=== PATIENT | female | born 1930 | race Caucasian/White ===

== ENCOUNTER 2016-08-01 10:47 | Observation (INO) ==
--- NOTE | 2016-08-01 11:01 | Emergency Department Note ---
Disposition Clinical Impression: Dizziness, ST segment changes on electrocardiogram Disposition: Admitted As Inpatient Condition: Good Dizziness HPI - General Chief Complaint: ED Dizziness Stated Complaint: dizzy Time Seen by Provider: 08/01/16 10:50 Source: patient Mode of arrival: ambulatory Limitations: no limitations Nursing Notes Reviewed: Yes Vital Signs Reviewed: Yes - History of Present Illness HPI Narrative: 85-year-old female presents to the ER with a chief complaint of dizziness. Past medical history of arthritis, hyperlipidemia and tachycardia of unknown origin. Patient reports that this morning she woke up and was feeling dizzy whenever she sat up and stood up. She states that she has had dizziness for the last couple of months but today seemed to be worse. She reports it has been intermittent since it started. She describes the room as spinning around her. She denies a previous history of vertigo or any recent head trauma. She reports that she has headaches but she does not take daily medications for them and this does not seem to be like her typical symptoms and she is currently pain -free. She denies any headaches, visual changes, neck pain, chest pain, shortness of breath, nausea or vomiting. She does report some recent ear pressure and a history of sinus infections. No history of TIA or CVA. She does not take any anticoagulation or antiplatelet. No cardiac history with the exception of her tachycardia for which she takes half a beta sandra daily. No other complaints. Pt Subjective Complaint: dizziness Onset (ago): hour(s) Timing: awoke with symptoms Description: "room spinning" History of similar episodes: No History of trauma: No Severity: moderate Improves with: nothing Worsens with: movement Associated symptoms: Denies: chest pain, diaphoresis, fever, shortness of breath , syncope, weakness, vision changes, nausea, vomiting - Related Data Home Medications Medication Instructions Recorded Confirmed Atenolol [Tenormin] 12.5 mg PO DAILY 08/01/16 08/01/16 Atorvastatin [Lipitor] 10 mg PO HS 08/01/16 08/01/16 Naproxen [Naprosyn] 500 mg PO BID PRN 08/01/16 08/01/16 Vit C/E/Zn/Coppr/Lutein/Zeaxan 1 cap PO DAILY 08/01/16 08/01/16 [Preservision Areds 2 Softgel] hydrOXYzine HCl [Hydroxyzine HCl] 25 - 50 mg PO HS PRN 08/01/16 08/01/16 Allergies Allergy/AdvReac Type Severity Reaction Status Date / Time No Known Allergies Allergy Verified 09/14/15 12:07 All systems ED: reviewed and negative except as stated. Constitutional: Denies: fever ENT ED: Reports: ear pain. Denies: congestion Cardiovascular: Denies: chest pain Respiratory: Denies: cough, dyspnea Gastrointestinal: Denies: abdominal pain, nausea, vomiting Neurological: Reports: vertigo. Denies: headache, weakness, numbness, paresthesias Past Medical History - Past Medical History Attestation: Yes The following information was validated with the patient. Source: patient Medical history: Reports: arthritis, hyperlipidemia Surgical history: Reports: non-contributory Psychiatric history: Reports: no psych history - Social History Smoking Status: Never smoker Smokeless Tobacco Status: No Alcohol use: Reports: none Drug use: Reports: none Physical Exam - General Limitations: no limitations General appearance: alert, in no apparent distress - Head Head exam: atraumatic, normocephalic, normal inspection - Eye Eye exam: Present: normal appearance, PERRL, EOMI - ENT ENT exam: normal exam - Neck Neck exam: Present: normal inspection, full ROM. Absent: tenderness, meningismus - Chest Chest inspection: Present: normal inspection, symmetric chest wall rise - Respiratory Respiratory exam: Present: normal lung sounds bilaterally - Cardiovascular Cardiovascular exam: Present: regular rate, normal rhythm, normal heart sounds - Abdominal Exam Abdominal exam: Present: soft, Non-Tender. Absent: tenderness - Extremities Exam Extremities exam: Present: normal inspection, full ROM - Expanded Upper Extremity Exam Shoulder exam: Present: normal inspection, full ROM Arm exam: Present: normal inspection, full ROM Elbow exam: Present: normal inspection, full ROM Forearm/Wrist exam: Present: normal inspection, full ROM Hand exam: Present: normal inspection, full ROM Vascular exam: Normal: capillary refill, radial pulse - Expanded Lower Extremity Exam Hip/Pelvis exam: Present: normal inspection, full ROM Upper leg exam: Present: normal inspection, full ROM Knee exam: Present: normal inspection, full ROM Lower leg exam: Present: normal inspection, full ROM Ankle exam: Present: normal inspection, full ROM Foot/toe exam: Present: normal inspection, full ROM Neurovascular/Tendon exam: Absent: motor deficit, sensory deficit - Back Exam Back exam: Present: normal inspection - Neurological Exam Neurological exam: Present: alert, oriented X3, CN II-XII intact. Absent: motor sensory deficit - Expanded Neurological Exam Patient oriented to: Present: person, place, time Speech: Present: fluid speech Cranial nerves: EOM function (II, III, IV, ): Normal, facial sensation (V): Normal, spinal accessory function (XI): Normal, tongue deviation (XII): Normal Cerebellar function: finger to nose: Normal, heel to persaud: Normal Motor strength - LUE: 5/5 Motor strength - RUE: 5/5 Motor strength - LLE: 5/5 Motor strength - RLE: 5/5 Sensory exam upper extremity: light touch: Normal Sensory exam lower extremity: light touch: Normal Coma Scale Eye Opening: Spontaneous Coma Scale Motor Response: Obeys Commands Coma Scale Verbal Response: Oriented Coma Scale Total: 15 - Psychiatric Psychiatric exam: Present: normal affect, normal mood - Skin Skin exam: Present: warm, dry, intact, normal color Course Course Narrative: Patient seen and examined. Vital signs reviewed. She is a nonfocal neurologic exam but does report that it does seem a little worse whenever I have her move her head back and forth. We will obtain a CT scan of her head as well as an EKG and labs. Disposition pending. - Reevaluation(s) Reevaluation #1: Discussed results of imaging and lab work with the patient. Her EKG does demonstrate new ST changes that were not on her old EKG. She is asymptomatic at this time in terms of chest pain or shortness of breath. She is agreeable with staying in the hospital due to these new findings. Patient will be admitted. Vital Signs Temperature 97.9 F 08/01/16 10:52 Pulse Rate 77 08/01/16 10:52 Respiratory Rate 16 08/01/16 10:52 Blood Pressure 169/89 08/01/16 10:52 O2 Sat by Pulse Oximetry 100 08/01/16 10:52 Temperature 97.9 F 08/01/16 10:52 Pulse Rate 70 08/01/16 12:45 Respiratory Rate 16 08/01/16 12:45 Blood Pressure 131/74 08/01/16 12:45 O2 Sat by Pulse Oximetry 97 08/01/16 12:45 Oxygen Delivery Oxygen Delivery Room Air Dizziness - MDM Narrative Medical decision making narrative: 85-year-old female presents to the ER due to dizziness. Reports on and off for the last 2 months however this morning it became more constant. She has a nonfocal neurologic exam. Unable to completely reproduce her vertigo. Her CT scan of her head shows no acute abnormalities with chronic age-related changes. Her EKG is sinus rhythm however she has new ST depressions that were not previously there. Her troponin is negative and she is currently chest pain- free. Patient will be admitted to the hospitalist service for dizziness and new EKG changes. - Lab Data Lab results reviewed: Yes I reviewed the patient's lab results. Result diagrams: 08/01/16 11:57 08/01/16 11:57 Lab Results 08/01/16 08/01/16 08/01/16 Range/Units 11:57 11:57 11:57 WBC 6.3 (4.3-11.1) K/mcL RBC 4.26 (3.82-4.97) M/mcL Hgb 12.6 (11.5-15.4) g/dL Hct 40.0 (35.3-44.9) % MCV 93.9 (83.0-100.0) fL MCH 29.6 (28.0-33.3) pg MCHC 31.5 L (31.6-35.5) g/dL RDW 13.9 (11.5-14.5) % Plt Count 221 (140-400) K/mcL MPV 9.8 (9.4-12.4) fL Immature Gran % 0.6 (0-4) % Seg Neutrophils % 68.2 % Lymphocytes % 19.8 % Monocytes % 8.7 % Eosinophils % 1.4 % Basophils % 1.3 % Neutrophils # 4.3 (1.6-8.9) K/mcL Lymphocytes # 1.3 (0.6-4.6) K/mcL Monocytes # 0.6 (0.0-1.3) K/mcL Eosinophils # 0.1 (0.0-0.6) K/mcL Basophils # 0.1 (0.0-0.2) K/mcL Sodium 143 (136-145) mEq/L Potassium 3.8 (3.5-4.5) mEq/L Chloride 107 (98-109) mEq/L Carbon Dioxide 25 (19-29) mEq/L BUN 18 (7-20) mg/dL Creatinine 0.85 (0.57-1.11) mg/dL Est GFR ( Amer) > 60 (> 60) Est GFR (Non-Af Amer) > 60 (> 60) BUN/Creatinine Ratio 21 (6-26) Glucose 105 H (70-99) mg/dL Calculated Osmolality 298 (280-300) Calcium 9.4 (8.6-10.8) mg/dL Troponin I 0.01 (0-0.03) ng/mL - Radiology Data Radiology results reviewed: Yes I reviewed the patient's radiology results. Chest X-Ray 08/01/16 11:04 IMPRESSION: Clear lungs. No acute abnormality. Mild to moderate bullous changes. No significant change from the prior study. D/ / Asim Iniguez MD / Asim Iniguez MD Interpreting Provider: Asim Iniguez MD Head CT 08/01/16 11:04 IMPRESSION: No acute intracranial abnormality. Mild cerebral atrophy appropriate for age. D/ / Asim Iniguez MD / Asim Iniguez MD Interpreting Provider: Asim Iniguez MD - EKG Data EKG attestation: Yes I reviewed and interpreted this EKG. EKG results narrative: EKG demonstrates normal sinus rhythm with a rate of 69 bpm. Normal axis. IN interval 169 QRS duration 88 QTc 422 T-wave flattening in lead 3 appears unchanged from her previous EKG. However she appears to have new ST depressions in leads V3 and V4 that are new from her prior EKG on 09/14/15. No ST elevations. S.B.A.R. - S.B.A.R. Situation: Demographics, MOA Background: Presenting Complaint, Relevant PMH, Meds, & Allergies Assessment: Vital Signs, Course and respsone to treatment, Exam Concerns, Patient/Family Expectation, Pertinant Lab Results, Outstanding Labs Recommendation: Barrier(s) to disposition, Recommendation based on pending studies, treatments, or consults S.B.A.R. Report Given to: Dr. Enriqueta Pandey Repor Time: 12:41 Attestation Statement - Attestation Attestation: I examined this patient and my medical decision-making was reviewed with the DATA C[employer] PROJECT MANAGER/PA/Advanced Practice Nurse/Resident Physician. I agree with the documented findings, disposition and treatment plan as described except to the extent set forth below.
[2016-08-01 12:03] LABS: Basophils # 0.1 K/mcL (0.0-0.2); Basophils % 1.3 %; Eosinophils # 0.1 K/mcL (0.0-0.6); Eosinophils % 1.4 %; Hemoglobin 12.6 g/dL (11.5-15.4); Immature Granulocytes % 0.6 % (0-4); Lymphocytes # 1.3 K/mcL (0.6-4.6); Lymphocytes % 19.8 %; Mean Corpuscular HGB Conc 31.5 g/dL (31.6-35.5); Mean Corpuscular Hemoglobin 29.6 pg (28.0-33.3); Mean Corpuscular Volume 93.9 fL (83.0-100.0); Mean Platelet Volume 9.8 fL (9.4-12.4); Monocytes # 0.6 K/mcL (0.0-1.3); Monocytes % 8.7 %; Neutrophils # 4.3 K/mcL (1.6-8.9); Platelet Count 221 K/mcL (140-400); Red Blood Count 4.26 M/mcL (3.82-4.97); Red Cell Distribution Width 13.9 % (11.5-14.5); Segmented Neutrophils % 68.2 %
[2016-08-01 12:15] LABS: BUN/Creatinine Ratio 21 (6-26); Blood Urea Nitrogen 18 mg/dL (7-20); Calcium 9.4 mg/dL (8.6-10.8); Carbon Dioxide 25 mEq/L (19-29); Chloride 107 mEq/L (98-109); Glucose 105 mg/dL (70-99); Osmolality,Calculated 298 (280-300); Potassium 3.8 mEq/L (3.5-4.5); Sodium 143 mEq/L (136-145); eGFR For African Americans > 60 (> 60); eGFR For Non-African Americans > 60 (> 60)
--- NOTE | 2016-08-01 16:11 | Internal Med History&Physical ---
Date of Encounter: 08/01/16 Time of Encounter: 16:08 Assessment and Plan (1) Dizziness Current visit: Yes Status: Acute Vertigo versus posterior circulation ischemia. Hold Blood pressure medications and allow for permissive hypertension. We will get an MRI of the brain. Echocardiogram and carotid Doppler. (2) ST segment changes on electrocardiogram Current visit: Yes Status: Acute She denies any active chest pain. Serial cardiac markers. Cardiology consultation. Continuous telemetry monitoring. Continue aspirin 81 mg daily Internal Medicine - H&P: HPI Chief complaint: dizziness History of present illness: Mrs. Rowley is a 85 year old female with history of macular degeneration, dyslipidemia, tachycardia on atenolol presents to the emergency room today with the main complain of dizziness. Since she woke up this morning she complains of dizziness which she describes as spinning sensation. She also noticed some gait unsteadiness. She denied any focal weakness. Not tingling or numbness in any extremity. No facial symmetry or speech sluriness. No prior similar history. No history of vertigo. No chest pain and no prior history of cardiac disease. She denies any recent febrile illness. No cough, expectoration, diarrhea or urinary symptoms. She has been complaining of nasal stuffiness and discomfront on frontal and maxillary sinuses. No purulent drainage Past Med Surg Social Fam HX - Past Medical History Medical history: arthritis, hyperlipidemia Psychiatric history: no psych history - Past Surgical History Surgical History: non-contributory - Social History Smoking Status: Never smoker Smokeless Tobacco Status: No Alcohol use: none Drug use: none Internal Medicine - H&P: Meds Atenolol [Tenormin] 12.5 mg PO DAILY 08/01/16 [History] Atorvastatin [Lipitor] 10 mg PO HS 08/01/16 [History] Naproxen [Naprosyn] 500 mg PO BID PRN 08/01/16 [History] Vit C/E/Zn/Coppr/Lutein/Zeaxan [Preservision Areds 2 Softgel] 1 cap PO DAILY [History] hydrOXYzine HCl [Hydroxyzine HCl] 25 - 50 mg PO HS PRN 08/01/16 [History] Allergies No Known Allergies Allergy (Verified 09/14/15 12:07) All Systems PM: A 10-system review of systems was performed and is negative for pertinent findings except as documented above in the HPI. Review of systems: 10 point review of systems is negative except for HPI. - Constitutional Vitals: Temp Pulse Resp BP Pulse Ox 98.1 F 64 18 146/76 99 08/01/16 14:57 08/01/16 14:57 08/01/16 14:57 08/01/16 14:57 08/01/16 14:57 Exam: Gen.: patient is alert oriented times 3 nontender distress. Thania: normal S1 S2 no additional sounds chest: clear auscultation abdomen: soft nontender nondistended lower extremity: lax calf muscles. Neuro: No focal deficits. Finger to nose, finger to Dr. Alexander, heal to persaud intact Internal Med - H&P Results - Labs CBC & Chem 7: 08/01/16 11:57 08/01/16 11:57
[2016-08-01] MEDS: *HR* Heparin 5,000 UNIT/ML VIAL SQ SCH (17:14)
[2016-08-01] MEDS ORDERED: D5% in 0.9% NACL 1,000 ML IVC SCH (19:45)
[2016-08-01 23:26] LABS: Bilirubin,Urine Negative (Negative); Blood,Urine Negative (Negative); Clarity,Urine Clear (Clear); Color,Urine Yellow (Yellow); Glucose,Urine (UA) Normal (Normal); Ketones,Urine Negative (Negative); Leukocyte Esterase,Urine Moderate (Negative); Nitrite,Urine Negative (Negative); Protein,Urine Negative (Neg-Trace); Specific Gravity,Urine 1.017 (1.010-1.025); Urobilinogen,Urine Normal (Normal)
[2016-08-01 23:29] LABS: Bacteria,Urine None Seen per hpf (None-Few); Hyaline Casts,Urine None Seen per lpf (None-Few); Squamous Epithelial Cell,Urine Moderate per lpf (None-Few); WBC,Urine 15-30 per hpf (0-3)
[2016-08-02 03:30] LABS: Basophils # 0.1 K/mcL (0.0-0.2); Eosinophils # 0.3 K/mcL (0.0-0.6); Eosinophils % 4.2 %; Hematocrit 36.1 % (35.3-44.9); Hemoglobin 11.6 g/dL (11.5-15.4); Immature Granulocytes % 0.3 % (0-4); Lymphocytes % 32.1 %; Mean Corpuscular HGB Conc 32.1 g/dL (31.6-35.5); Mean Corpuscular Hemoglobin 30.5 pg (28.0-33.3); Mean Platelet Volume 10.4 fL (9.4-12.4); Monocytes # 0.8 K/mcL (0.0-1.3); Monocytes % 13.1 %; Platelet Count 211 K/mcL (140-400); Red Cell Distribution Width 14.2 % (11.5-14.5); Segmented Neutrophils % 49.3 %
[2016-08-02 03:48] LABS: BUN/Creatinine Ratio 20 (6-26); Blood Urea Nitrogen 16 mg/dL (7-20); Calcium 8.9 mg/dL (8.6-10.8); Carbon Dioxide 26 mEq/L (19-29); Chloride 109 mEq/L (98-109); Glucose 98 mg/dL (70-99); Magnesium 2.2 mg/dL (1.6-2.6); Osmolality,Calculated 297 (280-300); Potassium 3.5 mEq/L (3.5-4.5); Sodium 143 mEq/L (136-145); eGFR For African Americans > 60 (> 60); eGFR For Non-African Americans > 60 (> 60)
[2016-08-02] MEDS: *HR* Heparin 5,000 UNIT/ML VIAL SQ SCH (05:19)
[2016-08-02] MEDS ORDERED: Fluticasone Propionate Nasal 50 MCG/SPRAY BOTTLE NS SCH (09:00)
[2016-08-02] MEDS ORDERED: Famotidine 20 MG TABLET PO SCH (09:00)
[2016-08-02] MEDS ORDERED: Aspirin Enteric Coated 81 MG Tablet PO SCH (09:00)
--- NOTE | 2016-08-02 10:16 | Cardiology Consult Note ---
Date of Encounter: 08/02/16 Time of Encounter: 10:15 Assessment and Plan (1) Dizziness Current Visit: Yes Status: Acute Per Cardiology: Reported 2 weeks of dizziness that seem to occur with position changes. Orthostatics negative (slight increase in HR with standing, but SBP stable). Current systolic blood pressure in the 100s and off atenolol. 24 hour tele reviewed with average heart rate 71, SR, rare PVCs, no significant events noted. Head CT with no acute intracranial abnormalities. Echo showed EF preserved at 65%, moderate diastolic dysfxn, mild MR, moderate TR, mild PHTN, ascending aorta 3.7cm, NSWMA. Will continue to monitor tele. Carotid duplex pending. (2) ST segment changes on electrocardiogram Current Visit: Yes Status: Acute Per Cardiology: Trops negative x 3. ECG showed flipped T waves V1 through V2 and mild ST nonspecific depression in V3 to V5. Patient denies any chest pain, dyspnea on exertion, or fatigue. Risk factors for CAD somewhat minimal-- age and father reported ?ND about 40 years ago. Patient had breakfast this am (including coffee ). Echo pending. Consider ST. Will discuss and review with Dr. Dyer. Further recs after echo. On asa and statin. Discussion w patient/family: The assessment and plan as outlined above was discussed with the patient and/or family members who expressed understanding and agreement. All questions were answered. Thank you for involving us in the care of your patient. Please call with any questions. History of Present Illness Consult date: 08/02/16 Requesting physician: Alex Gonzalez Consult reason: ECG Changes, Dizziness Chief complaint: Dizziness History of present illness: Mrs. Rowley is a 85 year old female with history of OA, dyslipidemia, and reported "tachycardia/palpitations she has been taking atenolol for the past 20 years" who presented to emergency room with complaint of dizziness. Cardiology consult for ECG concerns. Patient reports her normal state of health up until the past 2 weeks. She reports 5-6 episodes of dizziness with positional changes. One occurred with leaning back at the [employer] salon and having her hair washed. She denies any syncope or loss of consciousness. She reports headaches intermittently over the past few weeks as well. Denies any fever, chills, nausea, vomiting, diarrhea, any sinus drainage or congestion. Denies any history of TIA, CVA. Denies any active bleeding or blood loss. Denies any chest pain, short of breath, palpitations, or fatigue. Denies any painful urination or foul odor or discoloration. Past Med Surg Social Fam HX - Past Medical History Attestation: Yes The following information was validated with the patient. Source: patient, old records reviewed, obtained from family Medical history: arthritis, hyperlipidemia Psychiatric history: no psych history - Past Surgical History Surgical History: non-contributory - Social History Smoking Status: Never smoker Smokeless Tobacco Status: No Alcohol use: none Drug use: none Medications and Allergies Atenolol [Tenormin] 12.5 mg PO DAILY 08/01/16 [History] Atorvastatin [Lipitor] 10 mg PO HS 08/01/16 [History] Naproxen [Naprosyn] 500 mg PO BID PRN 08/01/16 [History] Vit C/E/Zn/Coppr/Lutein/Zeaxan [Preservision Areds 2 Softgel] 1 cap PO DAILY [History] hydrOXYzine HCl [Hydroxyzine HCl] 25 - 50 mg PO HS PRN 08/01/16 [History] Allergies No Known Allergies Allergy (Verified 09/14/15 12:07) All Systems Review: A 10-system review of systems was performed and is negative for pertinent findings except as documented above in the HPI. - Cardiovascular Cardiovascular: as per HPI, lightheadedness - Neurological Neurological: dizziness Physical Examination Vital Signs, Last 4 Hours Temp Pulse Resp BP Pulse Ox 08/02/16 06:49 97.7 F 72 14 108/70 98 General: Conversant, No Apparent Distress HEENT: Atraumatic, Normocephaly, Mucus Membranes Moist Neck: No JVD, Normal carotid pulses Cardiac: Reg Rate and Rhythm, Normal S1 and S2, No Murmur Lungs: Normal Breath Sounds, No Wheeze, Rales, Rhonchi Neuro: Alert and responsive, No focal deficits noted Abdomen: Soft, Non-Tender Skin: No rashes noted on visualized skin Musculoskeletal: No Chest Wall Tenderness Extremities: No Edema, Normal Pulses Results 08/02/16 02:27 08/02/16 02:27 Lab Results Laboratory Tests 08/01/16 08/01/16 08/01/16 11:57 17:59 23:10 Magnesium Troponin I 0.01 0.00 Ur Leukocyte Esterase Moderate H Ur Squamous Epith Cells Moderate H Ur Culture Indicated? YES A 08/01/16 08/02/16 23:25 02:27 Magnesium 2.2 Troponin I 0.00 Ur Leukocyte Esterase Ur Squamous Epith Cells Ur Culture Indicated? ITS Impressions Chest X-Ray 08/01/16 11:04 IMPRESSION: Clear lungs. No acute abnormality. Mild to moderate bullous changes. No significant change from the prior study. D/ / Asim Iniguez MD / Asim Iniguez MD Interpreting Provider: Asim Iniguez MD Head CT 08/01/16 11:04 IMPRESSION: No acute intracranial abnormality. Mild cerebral atrophy appropriate for age. D/ / Asim Iniguez MD / Asim Iniguez MD Interpreting Provider: Asim Iniguez MD Active Medications Aspirin (Aspirin Ec) 81 mg PO DAILY [facility] Stop: 02/01/17 09:01 Last Admin: 08/02/16 07:35 Dose: 81 mg Atorvastatin Calcium (Lipitor) 10 mg PO HS [facility] Stop: 01/31/17 21:01 Last Admin: 08/01/16 20:16 Dose: 10 mg Famotidine (Pepcid) 20 mg PO DAILY [facility] PRN Reason: Protocol Stop: 02/01/17 09:01 Last Admin: 08/02/16 07:35 Dose: 20 mg Fluticasone Propionate (Flonase) 50 mcg NS DAILY [facility] PRN Reason: Protocol Stop: 02/01/17 09:01 Last Admin: 08/02/16 07:36 Dose: 50 mcg Heparin Sodium (Porcine) (Heparin) 5,000 unit SQ Q12HCO [facility] Stop: 01/31/17 18:01 Last Admin: 08/02/16 05:19 Dose: 5,000 unit Dextrose/Sodium Chloride (D5% And 0.9% Nacl 1000 Ml) 1,000 mls @ 50 mls/hr IVC .Q20H [facility] Stop: 01/31/17 19:46 Last Infusion: 08/02/16 05:24 Dose: 50 mls/hr - Imaging and Cardiology Chest Xray: report reviewed Echo: report reviewed - EKG Interpretation EKG results cardiology: personally reviewed (ECG with appear to previous ECG shows flipped T waves V1 through V2 and mild ST depression V3 through V5), sinus rhythm, other (24 hr telemetry reviewed with average heart rate 71, sinus rhythm, rare PVCs, no significant events noted) Consult Discharge Plan - Plan Referrals: Jana Soto, [employer] INST[employer]ER [Primary Care Provider] -
[2016-08-02 10:20] VITALS: BP 124/76
--- NOTE | 2016-08-02 10:45 | ECHO - Doppler Report ---
Echocardiogram Name: Lisa Rowley Date of Study: 08/02/2016 Date: 1930 Ht: 63.0 in Medical Record#: [id number] Age: 85 Wt: 115.0 lb Gender: Female BSA: 1.53 Order #: [id number] Location: [facility] Room #: [id number] Reading Physician: Julieta Padilla DO Skin Grader: John Myers RN Ordering Physician: Alex Gonzalez MD Primary Physician: Jana Soto CNP Indications: Dizziness Impressions: LVEF 65%. Normal left ventricular size and systolic function. There is evidence of moderate diastolic dysfunction of the left ventricle. Normal right ventricular size and function. Mild mitral regurgitation. Moderate tricuspid regurgitation. Estimated RVSP was 48 mmHg. Mild pulmonary hypertension. The IVC is not dilated. Ascending aorta size upper limits of normal for BSA, 3.7 cm. Left Ventricular Wall Motion: Rest Echo Findings All wall segments showed normal motion. Findings: Study Quality * Technically adequate exam. ECG Findings * Normal sinus rhythm. Left Ventricle * LVEF 65%. * Normal LV chamber size, wall thickness and function. * Moderate left ventricular diastolic dysfunction. Aorta * Normally sized aortic root. * Ascending aorta size upper limits of normal for BSA, 3.7 cm. Mitral Valve * Normal mitral valve structure. * No mitral stenosis. * Mild mitral regurgitation. Aortic Valve * No aortic regurgitation. * Trileaflet aortic valve. * Normal aortic valve structure. * No aortic stenosis. Tricuspid Valve * Normal tricuspid valve structure. * Moderate tricuspid regurgitation. * Estimated RA pressure is 3 mmHg. * Estimated RVSP is 48 mmHg. * Mild pulmonary hypertension. Pulmonic Valve * Pulmonic valve is not well visualized. * No pulmonic stenosis. * No pulmonic regurgitation. Pulmonary Artery * Pulmonary artery not well visualized. Right Ventricle * Normal right ventricular structure and function. Right Atrium * Normal right atrial size. Left Atrium * Severely dilated left atrium. Interatrial Septum * No evidence of PFO by color Doppler. Pericardium * There is no pericardial effusion present. IVC * Normal IVC dimensions and inspiratory collapse. History Hypercholesteremia Family History of CAD Measurements: BP: 108/ 70 2D Normal Values RVIDd: 3.20 cm <2.7 cm IVSd: .90 cm 0.6 - 1.0 cm LVIDd: 4.40 cm 3.7 - 5.6 cm LVPWd: .80 cm 0.6 - 1.1 cm LVIDs: 2.80 cm 1.5 - 3.6 cm LA: 3.90 cm 2.0 - 4.0cm %FS: 36.40 cm >25 % LVOT Diam: 1.80 cm LA volume: 104 Mitral Valve Peak E:.76 m/sec Peak A:.70 m/sec E/A Ratio:1.1 Peak E' Lat Rex:6.73 cm/s Peak E' Med Rex:5.75 cm/s E/E' Lat Ratio:11.3 E/E' Med Ratio:13.2 Tricuspid Valve TV Regurg Peak Grad: 45.00mmHg TV Regurg Peak Rex: 3.37m/sec Updated by Julieta Padilla on 08/02/2016 10:39:14 AM electronically signed on 08/02/2016 10:40:21 AM with status of [employer] [place]: 1=Normal, 2=Hypokinesis, 3=Akinesis, 4=Dyskinesis, 5=Aneurysmal, 6=Hyperkinetic, X=Not Visualized (Blank)=Missing
[2016-08-02] MEDS ORDERED: Acetaminophen 325 MG TABLET PO ONE (11:38)
--- NOTE | 2016-08-02 13:13 | Discharge Summary ---
Date of Encounter: 08/02/16 Time of Encounter: 10:50 - Discharge Diagnosis (1) Dizziness Priority: Primary Status: Acute Comments: Patient presented to the emergency department yesterday with complaint of dizziness. She has had intermittent dizziness for the last few weeks but today seemed to be worse. Today dizziness started soon as she woke up and sat up in the bed. She says the room is spinning. She is not having chest pain nausea, vomiting, diarrhea, palpitations, or shortness of breath. There are no vision changes, neck pain. She denies urinary symptoms or abdominal pain. Her only cardiac history is that she takes a beta sandra for palpitations and has taken it for approximately [address] shows mild cerebral atrophy appropriate for age, no acute intracranial abnormality. (2) ST segment changes on electrocardiogram Priority: Secondary Status: Acute Comments: EKG showed inverted T waves and nonspecific ST changes. Patient denies any chest pain, dyspnea on exertion, or fatigue. She does take a beta sandra for tachycardia, however, she has taken it for about 20 years. She does take an aspirin and statin. She was seen by cardiology today. Echo is completed and shows LVEF 65%, normal LV size and systolic function and moderate diastolic dysfunctio. Normal RV size and function some regurgitation mitral and tricuspid valves. per cardiology patient does not want to stay for full workup. She says that she would like to go home and will follow-up with cardiology outpatient. She will be started on aspirin 81 mg by mouth daily. - Discharge Medications Prescriptions: Aspirin Enteric Coated [Aspirin EC] 81 mg PO DAILY #30 tablet. Home Medications: Atenolol [Tenormin] 12.5 mg PO DAILY 08/01/16 [History] Atorvastatin [Lipitor] 10 mg PO HS 08/01/16 [History] Naproxen [Naprosyn] 500 mg PO BID PRN 08/01/16 [History] Vit C/E/Zn/Coppr/Lutein/Zeaxan [Preservision Areds 2 Softgel] 1 cap PO DAILY [History] hydrOXYzine HCl [Hydroxyzine HCl] 25 - 50 mg PO HS PRN 08/01/16 [History] Aspirin Enteric Coated [Aspirin EC] 81 mg PO DAILY #30 tablet. 08/02/16 [Rx] Fluticasone Propionate Nasal [Flonase] 50 mcg NS DAILY bottle 08/02/16 [Rx] Allergies/Adverse Reactions: Allergies No Known Allergies Allergy (Verified 09/14/15 12:07) Procedures/tests Complete & Pending: Procedures Performed prior 72 hours Category Date Time Status EV carotid duplex imaging BI Routine Y 08/02/16 16:00 Completed EV echocardiogram Routine Y 08/02/16 16:00 Completed Date of admission: 08/01/16 13:44 Primary care physician: Jana Soto CNP Consults: 08/01/16 16:00 Consult to Occupational Therapy [CONS] Routine Comment: Evaluate, develop and implement POC Reason for Consult: dizziness Consult to Physical Therapy [CONS] Routine Comment: Evaluate, develop and implement POC Reason for Consult: dizziness 08/01/16 16:11 Consult to Cardiology [CONS] Routine Comment: Consulting Provider: Cardiology Tammy Reason for Consult: ischemic EKG changes. ST depression in V3-V6. No symptoms Call Completed: No Discharging clinician: Dipika Treadwell Anticipated date of discharge: 08/02/16 - Patient Status Disposition: Home, Self-Care Functional capacity at discharge: independent ambulation Overall status at discharge: patient is back to baseline - Discharge Instructions Follow Up With: Jana Soto CNP [Primary Care Provider] - Additional Instructions: Please start taking your Aspirin daily Follow up with cardiology as scheduled Follow up with your primary care provider in the next week or so Return to the ER for any new problems or concerns or if you have pain or dizziness again. - Diet and Activity Activity: resume usual activities as tolerated Diet: advance to your usual diet Hospital course: Ms. Rowley is a 85 year old female with history of tachycardia that was treated with a beta sandra, macular degeneration, dyslipidemia, and arthritis who presented to the emergency room with a main complaint of dizziness. She reports a few week history of dizziness that was worse today. Sometimes it is associated with position changes. She does report that she feels as if the room is spinning and she felt unsteady on her feet. She denies any weakness or numbness or tingling, no headache no shortness of breath, no nausea vomiting or diarrhea, no chest pain, and no vision changes. She does report recent but appeared to be URI or allergy symptoms. She has been started on Flonase here for that. Head CT was negative for any acute changes. Troponins were negative. She did attempt some nonspecific ST changes and was seen by cardiology. She has declined an ischemic workup and like to do that on an outpatient patient basis. Echocardiogram LVEF 65% otherwise unremarkable. There is moderate diastolic dysfunction. Labs within normal limits. Urine showed moderate leukocyte esterase, 5-15 white cells and red cells, no bacteria culture is pending. We will call patient with any need for antibiotics.Have encouraged adequate hydration. Patient denies chest pain, shortness of breath, dizziness today. She is appropriate and stable for discharge - Time Spent with Patient Total time spent providing and/or coordinating discharge services: - Constitutional Vitals: Temp Pulse Resp BP Pulse Ox 97.5 F L 61 14 124/76 96 08/02/16 10:15 08/02/16 10:15 08/02/16 10:15 08/02/16 10:08/02/16 10:15 General appearance: Present: A&O X 3, pleasant, no acute distress, answers questions appropriately - Eye Eye exam: Present: normal appearance, conjuntiva pink - ENT ENT exam: Present: mucous membranes moist, normal exam, normal external ear exam - Neck Neck exam general surgery: Present: normal inspection. Absent: lymphadenopathy , tenderness - Respiratory Respiratory exam: Present: CTAB. Absent: rales, respiratory distress, rhonchi, wheezes - Cardiovascular Cardiovascular exam: Present: RRR, +S1, +S2. Absent: diastolic murmur, systolic murmur - GI/Abdominal GI/Abdominal exam: Present: normal bowel sounds, soft. Absent: distended, hepatomegaly, tenderness - Extremities Exam Extremities exam: Present: normal capillary refill, normal inspection, warm, radial pulses palpable and symetrical. Absent: pedal edema, tenderness - Neurological Exam Neurological exam: Present: abnormal gait, oriented X3, no focal deficits, strengths equal and symetr throughout. Absent: pronater drift, facial droop, speech deficit
--- NOTE | 2016-08-03 20:32 | Carotid Imaging Report ---
Carotid Duplex Patient Name:Lisa Rowley Order Number:[id number] Procedure Date:08/02/2016 Date:1930ge:85 yrs Gender:Female Lt BP:136 / 75 mmHg Rt.BP:142 / 85 mmHgHeart Rate: Location:[facility] Room #: 3A12 Employee'S Representative:John Myers RN Referring MD:Alex Gonzalez MD nursing associate:Jana Soto, [employer] Reading MD:David Cosme MD Primary Indications:Dizziness Risk Factors Yes/No Hypertension No Diabetes No Hypercholesterolemia Yes Smoker Previous No Hx of TIA No Hx of CVA No Anticoagulants No Hx of CAD/PTCA No Previous Vascular Surgery No Impressions: The right internal carotid artery has a 60-79% stenosis. The left internal carotid artery has a 60-79% stenosis. Recommendations: Risk factor reduction. Further evaluation recommended if clinically indicated. Follow-up carotid duplex in 1 year. Test completed on 08/02/2016 at 9:40:00 am. Findings Carotid Duplex: Right: The right proximal common carotid artery has a PSV of 81 cm/s and a EDV of 17 cm/s. The right mid common carotid artery has a PSV of 72 cm/s and a EDV of 16 cm/s. The right distal common carotid artery has a PSV of 62 cm/s and a EDV of 17 cm/s. There is nonstenotic plaque in the right bifurcation with a PSV of 46 cm/s and a EDV of 8 cm/s. There is smooth heterogeneous plaque. The right proximal internal carotid artery has a PSV of 100 cm/s and a EDV of 29 cm/s. There is 60-79% stenosis in the right mid internal carotid artery with a PSV of 160 cm/s and a EDV of 48 cm/s. There is 60-79% stenosis in the right distal internal carotid artery with a PSV of 149 cm/s and a EDV of 48 cm/s. The right eca has a PSV of 159 cm/s and a EDV of 14 cm/s. The right vertebral artery has a PSV of 45 cm/s and a EDV of 14 cm/s. Left: The left proximal common carotid artery has a PSV of 67 cm/s and a EDV of 15 cm/s. The left mid common carotid artery has a PSV of 65 cm/s and a EDV of 17 cm/s. The left distal common carotid artery has a PSV of 56 cm/s and a EDV of 17 cm/s. The left bifurcation has a PSV of 48 cm/s and a EDV of 11 cm/s. There is 60-79% stenosis in the left proximal internal carotid artery with a PSV of 144 cm/s and a EDV of 40 cm/s. The left mid internal carotid artery has a PSV of 105 cm/s and a EDV of 34 cm/s. The left distal internal carotid artery has a PSV of 83 cm/s and a EDV of 24 cm/s. The left eca has a PSV of 48 cm/s and a EDV of 10 cm/s. The left vertebral artery has a PSV of 32 cm/s and a EDV of 9 cm/s. Prior Study: No prior study available for comparison. Carotid Results Right PSV EDV Assessment Proximal CCA 81 17 Normal Mid CCA 72 16 Normal Distal CCA 62 17 Normal Bifurcation 46 8 Non Stenotic Plaque Proximal ICA 100 29 Normal Mid ICA 160 48 60-79% stenosis Distal ICA 149 48 60-79% stenosis ECA 159 14 Normal Vertebral Artery 45 14 Normal Left PSV EDV Assessment Proximal CCA 67 15 Normal Mid CCA 65 17 Normal Distal CCA 56 17 Normal Bifurcation 48 11 Normal Proximal ICA 144 40 60-79% stenosis Mid ICA 105 34 Normal Distal ICA 83 24 Normal ECA 48 10 Normal Vertebral Artery 32 9 Normal Ratio's Right ICA/CCA Ratio: 2.22 ICA/CCA Values: 160/72 Left ICA/CCA Ratio: 2.22 ICA/CCA Values: 144/65 Updated by David Cosme MD on 08/03/2016 8:25:11 PM electronically signed on 08/03/2016 8:25:34 PM with status of Final
[2016-08-04 20:56] LABS: CK-BB (CK isoenzymes) 0 % (0-0); CK-MB (CK isoenzymes) 0 % (0-4); CK-MM (CK-isoenzymes) 100 % (96-100)
[2016-08-04 20:56] LABS: CK-BB (CK isoenzymes) 0 % (0-0); CK-MB (CK isoenzymes) 0 % (0-4); CK-MM (CK-isoenzymes) 100 % (96-100)
--- NOTE | 2016-08-05 08:57 | Electrocardiograph Report ---
[place] [facility] Test Date: 2016-08-01 Pat Name: Lisa Rowley Department: 102 Room: 3A12 Gender: F Vp Patient: : 1930 Requested By: Polo Sr Order Number: [id number] Reading MD: Rajesh Catherine MD Measurements Intervals [place] Rate: 69 P: 72 WI: 169 QRS: 37 QRSD: 88 T: 28 QT: 403 QTc: 422 Interpretive Statements SINUS RHYTHM NONSPECIFIC ST \T\ T-WAVE ABNORMALITY Electronically Signed On 08-05-2016 8:55:39 EDT by Rajesh Catherine MD
[2016-08-05 13:33] LABS: CK Total (Ck Isoenzymes) 105 U/L (20-180)
[2016-08-05 13:34] LABS: CK Total (Ck Isoenzymes) 105 U/L (20-180)
== END 2016-08-02 14:23 | disposition home or self-care (01) ==
LOC: 3ANU 10:47 → EMEROO 10:47 → SUATTDRO 13:44 → 3ANU 14:21
PROVIDERS: ADMIT Internal Medicine; ATTEND Internal Medicine

== ENCOUNTER 2019-04-29 10:49 | Observation (INO) ==
[2019-04-29] MEDS ORDERED: Aspirin 81 MG TAB.CHEW PO ONE (10:54)
[2019-04-29] MEDS ORDERED: DilTIAZem 50 MG in 0.9 % Sodium Chloride 40 ML IVC SCH (11:15)
[2019-04-29 11:19] LABS: Basophils # 0.1 K/mcL (0.0-0.2); Basophils % 0.8 %; Eosinophils # 0.2 K/mcL (0.0-0.6); Eosinophils % 1.5 %; Hematocrit 43.4 % (35.3-44.9); Hemoglobin 14.2 g/dL (11.5-15.4); Immature Granulocytes % 0.5 % (0-4); Lymphocytes # 2.5 K/mcL (0.6-4.6); Lymphocytes % 22.8 %; Mean Corpuscular HGB Conc 32.7 g/dL (31.6-35.5); Mean Corpuscular Hemoglobin 29.8 pg (28.0-33.3); Mean Platelet Volume 9.7 fL (9.4-12.4); Monocytes % 9.1 %; Neutrophils # 7.1 K/mcL (1.6-8.9); Platelet Count 348 K/mcL (140-400); Red Blood Count 4.77 M/mcL (3.82-4.97); Red Cell Distribution Width 14.5 % (11.5-14.5); Segmented Neutrophils % 65.3 %; White Blood Count 10.8 K/mcL (4.3-11.1)
[2019-04-29 11:31] LABS: Prothrombin Time 11.7 Seconds (9.4-12.1)
[2019-04-29] MEDS ORDERED: 0.9 % Sodium Chloride 250 ML ONE (11:32)
[2019-04-29 11:33] LABS: Activated Partial Thrombo Time 31.7 Seconds (26.0-36.0)
[2019-04-29 11:40] LABS: BUN/Creatinine Ratio 14 (6-26); Blood Urea Nitrogen 11 mg/dL (8-23); Calcium 9.5 mg/dL (8.6-10.3); Carbon Dioxide 26 mEq/L (23-29); Chloride 103 mEq/L (98-107); Glucose 108 mg/dL (70-105); Osmolality,Calculated 290 (280-300); Potassium 3.6 mEq/L (3.5-5.1); Sodium 140 mEq/L (136-145); eGFR For African Americans > 60 (> 60); eGFR For Non-African Americans > 60 (> 60)
[2019-04-29 11:49] LABS: Troponin I 0.06 ng/mL (< 0.04)
[2019-04-29] MEDS ORDERED: 0.9 % Sodium Chloride 500 ML ONE (12:37)
[2019-04-29] MEDS ORDERED: *HR* Heparin 5,000 UNIT/ML VIAL IVP PRN ×2 (13:07)
[2019-04-29] MEDS ORDERED: Naloxone 0.4 MG/ML INJ IVP PRN (13:09)
[2019-04-29 13:41] LABS: Magnesium 2.1 mg/dL (1.6-2.6); Thyroid Stimulating Hormone 4.022 mcIU/mL (0.340-5.600)
[2019-04-29] MEDS: Heparin 25,000 UNIT/250 ML D5W 25,000 UNIT/250 ML IV.SOLN IVC SCH (14:00)
[2019-04-29] MEDS: DilTIAZem 50 MG in 0.9 % Sodium Chloride 40 ML IVC SCH ×2 (15:53→21:36)
[2019-04-29] MEDS: ALPRAZolam 0.5 MG TABLET PO SCH (20:41)
[2019-04-29] MEDS: Multivit/Ca/Min/Fe/FA 1 TAB TABLET PO SCH (20:41)
[2019-04-30 02:06] LABS: Basophils # 0.1 K/mcL (0.0-0.2); Basophils % 0.7 %; Eosinophils # 0.1 K/mcL (0.0-0.6); Eosinophils % 1.7 %; Hematocrit 33.9 % (35.3-44.9); Immature Granulocytes % 0.5 % (0-4); Lymphocytes # 1.9 K/mcL (0.6-4.6); Lymphocytes % 23.2 %; Mean Corpuscular HGB Conc 32.2 g/dL (31.6-35.5); Mean Corpuscular Hemoglobin 30.4 pg (28.0-33.3); Mean Corpuscular Volume 94.7 fL (83.0-100.0); Mean Platelet Volume 9.7 fL (9.4-12.4); Monocytes % 11.9 %; Platelet Count 257 K/mcL (140-400); Red Blood Count 3.58 M/mcL (3.82-4.97); Red Cell Distribution Width 14.2 % (11.5-14.5); White Blood Count 8.1 K/mcL (4.3-11.1)
[2019-04-30 02:11] LABS: Hemoglobin 10.9 g/dL (11.5-15.4)
[2019-04-30 02:21] LABS: Chol/HDL Ratio 3.1 (0-4.9)
[2019-04-30 02:23] LABS: BUN/Creatinine Ratio 17 (6-26); Blood Urea Nitrogen 13 mg/dL (8-23); Calcium 8.5 mg/dL (8.6-10.3); Carbon Dioxide 28 mEq/L (23-29); Chloride 105 mEq/L (98-107); Glucose 98 mg/dL (70-105); Magnesium 2.1 mg/dL (1.6-2.6); Osmolality,Calculated 292 (280-300); Potassium 3.8 mEq/L (3.5-5.1); Sodium 141 mEq/L (136-145); eGFR For African Americans > 60 (> 60); eGFR For Non-African Americans > 60 (> 60)
[2019-04-30] MEDS: Aspirin Enteric Coated 81 MG Tablet PO SCH (09:03)
[2019-04-30] MEDS: Multivit/Ca/Min/Fe/FA 1 TAB TABLET PO SCH (09:03)
[2019-04-30] MEDS ORDERED: Acetaminophen 325 MG TABLET PO ONE (09:19)
[2019-04-30] MEDS: DilTIAZem CD (24hr) 120 MG CAP.ER.24H PO SCH (10:04)
[2019-04-30 10:52] LABS: Estimated Average Glucose 117 mg/dl
[2019-04-30] MEDS: DilTIAZem 50 MG in 0.9 % Sodium Chloride 40 ML IVC SCH (13:06)
[2019-04-30 15:02] LABS: Hemoglobin 13.3 g/dL (11.5-15.4)
[2019-04-30] MEDS: ALPRAZolam 0.5 MG TABLET PO SCH (22:26)
[2019-04-30] MEDS: Heparin 25,000 UNIT/250 ML D5W 25,000 UNIT/250 ML IV.SOLN IVC SCH (22:26)
[2019-05-01 07:23] VITALS: BP 117/86
[2019-05-01] MEDS: Multivit/Ca/Min/Fe/FA 1 TAB TABLET PO SCH (08:53)
[2019-05-01] MEDS: Aspirin Enteric Coated 81 MG Tablet PO SCH (08:54)
[2019-05-01] MEDS: DilTIAZem CD (24hr) 120 MG CAP.ER.24H PO SCH (08:54)
[2019-05-01] MEDS ORDERED: Apixaban 5 MG TABLET PO ONE (09:00)
== END 2019-05-01 14:13 | disposition home or self-care (01) ==
LOC: EMEROOARM 10:49 → 2NENU 10:49
PROVIDERS: ADMIT Internal Medicine; ATTEND Internal Medicine

== ENCOUNTER 2019-05-13 03:21 | Observation (INO) ==
[2019-05-13 03:51] LABS: Basophils # 0.1 K/mcL (0.0-0.2); Basophils % 0.7 %; Eosinophils # 0.1 K/mcL (0.0-0.6); Eosinophils % 1.4 %; Hematocrit 39.8 % (35.3-44.9); Hemoglobin 12.6 g/dL (11.5-15.4); Immature Granulocytes % 0.5 % (0-4); Lymphocytes % 20.9 %; Mean Corpuscular HGB Conc 31.7 g/dL (31.6-35.5); Mean Corpuscular Hemoglobin 29.7 pg (28.0-33.3); Mean Corpuscular Volume 93.9 fL (83.0-100.0); Mean Platelet Volume 9.5 fL (9.4-12.4); Monocytes # 0.9 K/mcL (0.0-1.3); Monocytes % 9.9 %; Neutrophils # 6.2 K/mcL (1.6-8.9); Platelet Count 369 K/mcL (140-400); Red Blood Count 4.24 M/mcL (3.82-4.97); Red Cell Distribution Width 14.5 % (11.5-14.5); Segmented Neutrophils % 66.6 %; White Blood Count 9.4 K/mcL (4.3-11.1)
[2019-05-13 04:00] LABS: INR 1.4; Prothrombin Time 15.8 Seconds (9.4-12.1)
[2019-05-13 04:03] LABS: Activated Partial Thrombo Time 31.4 Seconds (26.0-36.0)
[2019-05-13 04:13] LABS: BUN/Creatinine Ratio 19 (6-26); Blood Urea Nitrogen 14 mg/dL (8-23); Calcium 9.1 mg/dL (8.6-10.3); Carbon Dioxide 28 mEq/L (23-29); Chloride 106 mEq/L (98-107); Glucose 102 mg/dL (70-105); Osmolality,Calculated 293 (280-300); Potassium 3.6 mEq/L (3.5-5.1); Sodium 141 mEq/L (136-145); Troponin I < 0.03 ng/mL (< 0.04); eGFR For African Americans > 60 (> 60); eGFR For Non-African Americans > 60 (> 60)
[2019-05-13] MEDS ORDERED: Ondansetron 4 MG/2 ML VIAL IVP PRN (07:26)
[2019-05-13] MEDS ORDERED: Naloxone 0.4 MG/ML INJ IVP PRN (07:26)
[2019-05-13] MEDS: Aspirin Enteric Coated 81 MG Tablet PO SCH (08:52)
[2019-05-13] MEDS: Metoprolol XL (24 HR) Succ 25 MG TAB.ER.24H PO SCH (08:53)
[2019-05-13] MEDS: DilTIAZem CD (24hr) 120 MG CAP.ER.24H PO SCH (08:53)
[2019-05-13] MEDS: Apixaban 5 MG TABLET PO SCH ×2 (08:53→21:23)
[2019-05-13] MEDS ORDERED: Acetaminophen 325 MG TABLET PO PRN (14:26)
[2019-05-13] MEDS ORDERED: ALPRAZolam 0.5 MG TABLET PO ONE (17:42)
[2019-05-13] MEDS: ALPRAZolam 0.5 MG TABLET PO SCH (21:23)
[2019-05-14 05:35] LABS: Hematocrit 36.8 % (35.3-44.9); Hemoglobin 11.9 g/dL (11.5-15.4); Immature Granulocytes % 0.6 % (0-4); Lymphocytes % 16.9 %; Mean Corpuscular HGB Conc 32.3 g/dL (31.6-35.5); Mean Corpuscular Hemoglobin 30.5 pg (28.0-33.3); Mean Corpuscular Volume 94.4 fL (83.0-100.0); Mean Platelet Volume 9.5 fL (9.4-12.4); Monocytes % 10.2 %; Platelet Count 331 K/mcL (140-400); Red Cell Distribution Width 14.6 % (11.5-14.5); Segmented Neutrophils % 69.1 %; White Blood Count 8.6 K/mcL (4.3-11.1)
[2019-05-14 05:36] LABS: Basophils # 0.1 K/mcL (0.0-0.2); Basophils % 0.9 %; Eosinophils # 0.2 K/mcL (0.0-0.6); Eosinophils % 2.3 %; Lymphocytes # 1.5 K/mcL (0.6-4.6); Monocytes # 0.9 K/mcL (0.0-1.3); Neutrophils # 5.9 K/mcL (1.6-8.9)
[2019-05-14 05:50] LABS: BUN/Creatinine Ratio 16 (6-26); Blood Urea Nitrogen 12 mg/dL (8-23); Calcium 8.3 mg/dL (8.6-10.3); Carbon Dioxide 28 mEq/L (23-29); Chloride 106 mEq/L (98-107); Glucose 89 mg/dL (70-105); Osmolality,Calculated 287 (280-300); Potassium 3.8 mEq/L (3.5-5.1); Sodium 139 mEq/L (136-145); eGFR For African Americans > 60 (> 60); eGFR For Non-African Americans > 60 (> 60)
[2019-05-14] MEDS: Metoprolol XL (24 HR) Succ 25 MG TAB.ER.24H PO SCH ×2 (07:45→08:38)
[2019-05-14] MEDS: Aspirin Enteric Coated 81 MG Tablet PO SCH (07:45)
[2019-05-14] MEDS: DilTIAZem CD (24hr) 120 MG CAP.ER.24H PO SCH (07:45)
[2019-05-14] MEDS: Apixaban 5 MG TABLET PO SCH ×2 (07:45→22:43)
[2019-05-14] MEDS ORDERED: Ketorolac 15 MG/ML VIAL IVP PRN (16:51)
[2019-05-14] MEDS: ALPRAZolam 0.5 MG TABLET PO SCH (22:43)
[2019-05-14] MEDS ORDERED: *HR* Metoprolol 5 MG/5 ML VIAL IVP ONE (23:51)
[2019-05-15] MEDS ORDERED: *HR* Metoprolol 5 MG/5 ML VIAL IVP ONE ×2 (01:40→06:28)
[2019-05-15] MEDS ORDERED: Regadenoson 0.4 MG/5 ML SYRINGE IVP ONE (06:09)
[2019-05-15] MEDS: Apixaban 5 MG TABLET PO SCH (08:55)
[2019-05-15] MEDS: DilTIAZem CD (24hr) 120 MG CAP.ER.24H PO SCH (08:55)
[2019-05-15] MEDS: Metoprolol XL (24 HR) Succ 25 MG TAB.ER.24H PO SCH (08:56)
[2019-05-15] MEDS: Aspirin Enteric Coated 81 MG Tablet PO SCH (08:56)
[2019-05-15 13:37] VITALS: BP 107/67
== END 2019-05-15 16:00 | disposition home or self-care (01) ==
LOC: EMEROOARM 03:21 → 2ANU 03:21 → SUATTDRO 05:32 → 2ANU 06:07
PROVIDERS: ADMIT Family Medicine; ATTEND Internal Medicine

== ENCOUNTER 2019-05-31 14:09 | Observation (INO) ==
[2019-05-31] MEDS ORDERED: Isovue-370 500 ML BOTTLE IVP ONE (15:25)
[2019-05-31 16:16] LABS: Basophils # 0.1 K/mcL (0.0-0.2); Basophils % 0.8 %; Eosinophils # 0.1 K/mcL (0.0-0.6); Eosinophils % 0.7 %; Hematocrit 41.4 % (35.3-44.9); Immature Granulocytes % 0.6 % (0-4); Lymphocytes # 1.5 K/mcL (0.6-4.6); Lymphocytes % 14.8 %; Mean Corpuscular HGB Conc 31.4 g/dL (31.6-35.5); Mean Corpuscular Volume 92.4 fL (83.0-100.0); Mean Platelet Volume 9.8 fL (9.4-12.4); Monocytes # 1.1 K/mcL (0.0-1.3); Monocytes % 10.2 %; Neutrophils # 7.5 K/mcL (1.6-8.9); Platelet Count 459 K/mcL (140-400); Red Blood Count 4.48 M/mcL (3.82-4.97); Red Cell Distribution Width 14.5 % (11.5-14.5); Segmented Neutrophils % 72.9 %; White Blood Count 10.3 K/mcL (4.3-11.1)
[2019-05-31 16:17] LABS: INR 1.5; Prothrombin Time 16.7 Seconds (9.4-12.1)
[2019-05-31 16:19] LABS: Activated Partial Thrombo Time 36.2 Seconds (26.0-36.0)
[2019-05-31 16:41] LABS: Alanine Aminotransferase 19 Units/L (7-52); Albumin 3.2 g/dL (3.5-5.7); Albumin/Globulin Ratio 1.1 (1.1-2.2); Alkaline Phosphatase 71 Units/L (34-104); Aspartate Amino Transferase 32 Units/L (13-39); BUN/Creatinine Ratio 21 (6-26); Bilirubin,Total 0.4 mg/dL (0.3-1.0); Blood Urea Nitrogen 14 mg/dL (8-23); Calcium 8.7 mg/dL (8.6-10.3); Carbon Dioxide 24 mEq/L (23-29); Chloride 105 mEq/L (98-107); Globulin 2.8 g/dL (2.4-3.5); Glucose 113 mg/dL (70-105); Osmolality,Calculated 289 (280-300); Potassium 3.7 mEq/L (3.5-5.1); Sodium 139 mEq/L (136-145); eGFR For African Americans > 60 (> 60); eGFR For Non-African Americans > 60 (> 60)
[2019-05-31] MEDS ORDERED: 0.9 % Sodium Chloride 500 ML IVC ONE ×2 (16:44→18:22)
[2019-05-31] MEDS ORDERED: Naloxone 0.4 MG/ML INJ IVP PRN (22:46)
[2019-05-31] MEDS ORDERED: *HR* OxyCODONE/APAP 10/325 TABLET PO PRN (22:47)
[2019-05-31] MEDS ORDERED: Ondansetron 4 MG/2 ML VIAL IVP PRN (22:57)
[2019-06-01] MEDS: ALPRAZolam 0.5 MG TABLET PO SCH ×2 (00:42→20:18)
[2019-06-01] MEDS: Apixaban 2.5 MG TABLET PO SCH ×2 (08:31→20:18)
[2019-06-01] MEDS ORDERED: Aspirin Enteric Coated 81 MG Tablet PO SCH (09:00)
[2019-06-01] MEDS ORDERED: DilTIAZem CD (24hr) 120 MG CAP.ER.24H PO SCH (09:00)
[2019-06-01] MEDS ORDERED: Metoprolol XL (24 HR) Succ 25 MG TAB.ER.24H PO SCH (09:00)
[2019-06-01 14:54] LABS: Bilirubin,Urine Negative (Negative); Blood,Urine Negative (Negative); Clarity,Urine Clear (Clear); Color,Urine Dark Yellow (Yellow); Glucose,Urine (UA) Normal (Normal); Ketones,Urine 80 mg/dL (Negative); Leukocyte Esterase,Urine Negative (Negative); Nitrite,Urine Negative (Negative); Protein,Urine 100 mg/dL (Neg-Trace); Specific Gravity,Urine > 1.030 (1.010-1.025); Urobilinogen,Urine Normal (Normal)
[2019-06-01 14:57] LABS: Bacteria,Urine None Seen per hpf (None-Few); Hyaline Casts,Urine Few per lpf (None-Few); Squamous Epithelial Cell,Urine Many per lpf (None-Few)
[2019-06-01 15:18] LABS: Calcium Oxalate Crystals,Urine Present; Mucus,Urine Moderate per lpf (Few)
[2019-06-01 15:19] LABS: Renal Epithelial Cells,Urine Few per hpf (None-Few); Transitional Epi Cells,Urine Few per hpf (None-Few)
[2019-06-01 18:45] VITALS: BP 110/70
[2019-06-01] MEDS ORDERED: ALPRAZolam 0.5 MG TABLET PO SCH (21:00)
== END 2019-06-02 00:07 | disposition short-term general hospital (02) ==
LOC: EMEROOARM 14:09 → 3ANU 14:09 → SUATTDRO 21:45 → 3ANU 22:30
PROVIDERS: ADMIT Student in an Organized Health Care Education/Training Program; ATTEND Internal Medicine

== ENCOUNTER 2019-07-09 12:28 | Observation (INO) ==
[2019-07-09] MEDS: DilTIAZem 50 MG in 0.9 % Sodium Chloride 40 ML IVC SCH ×2 (14:17→20:55)
[2019-07-09 14:20] LABS: Basophils % 0.2 %; Eosinophils # 0.7 K/mcL (0.0-0.6); Eosinophils % 8.3 %; Hematocrit 40.7 % (35.3-44.9); Hemoglobin 12.6 g/dL (11.5-15.4); Immature Granulocytes % 0.8 % (0-4); Lymphocytes # 1.6 K/mcL (0.6-4.6); Lymphocytes % 18.2 %; Mean Corpuscular Hemoglobin 28.3 pg (28.0-33.3); Mean Corpuscular Volume 91.5 fL (83.0-100.0); Mean Platelet Volume 12.4 fL (9.4-12.4); Monocytes # 0.2 K/mcL (0.0-1.3); Monocytes % 1.7 %; Neutrophils # 6.2 K/mcL (1.6-8.9); Platelet Count 271 K/mcL (140-400); Red Blood Count 4.45 M/mcL (3.82-4.97); Red Cell Distribution Width 15.7 % (11.5-14.5); Segmented Neutrophils % 70.8 %; White Blood Count 8.8 K/mcL (4.3-11.1)
[2019-07-09 14:29] LABS: BUN/Creatinine Ratio 30 (6-26); Blood Urea Nitrogen 19 mg/dL (8-23); Calcium 8.9 mg/dL (8.6-10.3); Carbon Dioxide 26 mEq/L (23-29); Chloride 101 mEq/L (98-107); Glucose 105 mg/dL (70-105); Osmolality,Calculated 283 (280-300); Potassium 3.3 mEq/L (3.5-5.1); Sodium 135 mEq/L (136-145); Troponin I < 0.03 ng/mL (< 0.04); eGFR For African Americans > 60 (> 60); eGFR For Non-African Americans > 60 (> 60)
[2019-07-09] MEDS ORDERED: Acetaminophen 325 MG TABLET PO PRN (14:41)
[2019-07-09] MEDS ORDERED: Naloxone 0.4 MG/ML INJ IVP PRN (14:41)
[2019-07-09] MEDS ORDERED: *HR* Promethazine 25 MG/ML VIAL IVP PRN (14:41)
[2019-07-09 14:49] LABS: INR 1.3; Prothrombin Time 14.6 Seconds (9.4-12.1)
[2019-07-09 14:51] LABS: Activated Partial Thrombo Time 27.6 Seconds (26.0-36.0)
[2019-07-09 15:00] LABS: Magnesium 1.9 mg/dL (1.6-2.6); Phosphorous 2.6 mg/dL (2.7-4.5)
[2019-07-09] MEDS ORDERED: Potassium Phosphate 44 MEQ in 0.9 % Sodium Chloride 250 ML IVPB ONE (15:10)
[2019-07-09] MEDS: DilTIAZem CD (24hr) 120 MG CAP.ER.24H PO SCH (15:47)
[2019-07-09] MEDS: Apixaban 2.5 MG TABLET PO SCH (20:40)
[2019-07-09] MEDS ORDERED: ALPRAZolam 0.5 MG TABLET PO SCH (21:00)
[2019-07-10 01:18] LABS: White Blood Count 6.3 K/mcL (4.3-11.1)
[2019-07-10 01:19] LABS: Basophils % 0.2 %; Eosinophils # 0.7 K/mcL (0.0-0.6); Eosinophils % 11.6 %; Hematocrit 33.1 % (35.3-44.9); Hemoglobin 10.4 g/dL (11.5-15.4); Immature Granulocytes % 1.6 % (0-4); Lymphocytes # 1.2 K/mcL (0.6-4.6); Lymphocytes % 19.6 %; Mean Corpuscular HGB Conc 31.4 g/dL (31.6-35.5); Mean Corpuscular Hemoglobin 28.7 pg (28.0-33.3); Mean Corpuscular Volume 91.2 fL (83.0-100.0); Mean Platelet Volume 11.9 fL (9.4-12.4); Monocytes # 0.1 K/mcL (0.0-1.3); Monocytes % 2.2 %; Neutrophils # 4.1 K/mcL (1.6-8.9); Platelet Count 226 K/mcL (140-400); Red Blood Count 3.63 M/mcL (3.82-4.97); Red Cell Distribution Width 15.9 % (11.5-14.5); Segmented Neutrophils % 64.8 %
[2019-07-10 01:42] LABS: BUN/Creatinine Ratio 26 (6-26); Blood Urea Nitrogen 15 mg/dL (8-23); Calcium 8.2 mg/dL (8.6-10.3); Carbon Dioxide 26 mEq/L (23-29); Chloride 106 mEq/L (98-107); Glucose 86 mg/dL (70-105); Magnesium 2.1 mg/dL (1.6-2.6); Osmolality,Calculated 286 (280-300); Phosphorous 4.1 mg/dL (2.7-4.5); Potassium 4.2 mEq/L (3.5-5.1); Sodium 138 mEq/L (136-145); eGFR For African Americans > 60 (> 60); eGFR For Non-African Americans > 60 (> 60)
[2019-07-10 06:45] VITALS: BP 119/69
[2019-07-10] MEDS ORDERED: Metoprolol XL (24 HR) Succ 25 MG TAB.ER.24H PO SCH (09:00)
[2019-07-10] MEDS ORDERED: Aspirin Enteric Coated 81 MG Tablet PO SCH (09:00)
[2019-07-10] MEDS: Apixaban 2.5 MG TABLET PO SCH (09:48)
[2019-07-10] MEDS: DilTIAZem CD (24hr) 120 MG CAP.ER.24H PO SCH (09:48)
== END 2019-07-10 11:42 | disposition home or self-care (01) ==
LOC: EMEROOARM 12:28 → 3BNU 12:28
PROVIDERS: ADMIT Internal Medicine; ATTEND Internal Medicine

== ENCOUNTER 2019-12-14 22:39 | Inpatient (IN) ==
[2019-12-15] MEDS ORDERED: Perflutren Lipid Microsphere 1.3 ML in 0.9 % Sodium Chloride 8.7 ML IVP PRN (01:55)
[2019-12-15] MEDS ORDERED: Ondansetron 4 MG/2 ML VIAL IM ONE (02:33)
[2019-12-15] MEDS ORDERED: Naloxone 0.4 MG/ML INJ IVP PRN (02:46)
[2019-12-15 08:50] LABS: Hematocrit 27.1 % (35.3-44.9); Hemoglobin 8.5 g/dL (11.5-15.4); Mean Corpuscular HGB Conc 31.4 g/dL (31.6-35.5); Mean Corpuscular Hemoglobin 31.6 pg (28.0-33.3); Mean Corpuscular Volume 100.7 fL (83.0-100.0); Mean Platelet Volume 9.6 fL (9.4-12.4); Platelet Count 219 K/mcL (140-400); Red Blood Count 2.69 M/mcL (3.82-4.97); White Blood Count 9.2 K/mcL (4.3-11.1)
[2019-12-15 08:52] LABS: INR 1.3; Prothrombin Time 14.6 Seconds (9.4-12.1)
[2019-12-15 08:54] LABS: Activated Partial Thrombo Time 31.7 Seconds (26.0-36.0)
[2019-12-15 09:08] LABS: Alanine Aminotransferase 19 Units/L (7-52); Albumin 3.5 g/dL (3.5-5.7); Albumin/Globulin Ratio 1.9 (1.1-2.2); Alkaline Phosphatase 47 Units/L (34-104); Aspartate Amino Transferase 19 Units/L (13-39); BUN/Creatinine Ratio 33 (6-26); Bilirubin,Direct 0.1 mg/dL (0.0-0.2); Bilirubin,Indirect 0.3 mg/dL (0.0-1.0); Bilirubin,Total 0.4 mg/dL (0.3-1.0); Blood Urea Nitrogen 22 mg/dL (8-23); Calcium 8.5 mg/dL (8.6-10.3); Carbon Dioxide 27 mEq/L (23-29); Chloride 109 mEq/L (98-107); Chol/HDL Ratio 2.6 (0-4.9); Cholesterol 142 mg/dL (< 200); Globulin 1.8 g/dL (2.4-3.5); Glucose 119 mg/dL (70-105); HDL Cholesterol 54 mg/dL (40-59); LDL Cholesterol,Calculated 75 mg/dL (< 100); Magnesium 1.8 mg/dL (1.6-2.6); Osmolality,Calculated 296 (280-300); Phosphorous 2.6 mg/dL (2.7-4.5); Potassium 4.1 mEq/L (3.5-5.1); Sodium 141 mEq/L (136-145); Total Protein 5.3 g/dL (6.4-8.9); Triglycerides 67 mg/dL (< 150); eGFR For African Americans > 60 (> 60); eGFR For Non-African Americans > 60 (> 60)
[2019-12-15] MEDS: Acetaminophen 325 MG TABLET PO PRN ×2 (10:27→16:03)
[2019-12-15] MEDS: Aspirin 81 MG TAB.CHEW PO SCH (16:03)
[2019-12-15] MEDS: Metoprolol XL (24 HR) Succ 25 MG TAB.ER.24H PO SCH (16:03)
[2019-12-15] MEDS ORDERED: Artificial Tears SOLN 15 ML BOTTLE BOTH EYES PRN (16:23)
[2019-12-15] MEDS: Ondansetron 4 MG/2 ML VIAL IVP PRN (16:30)
[2019-12-15] MEDS: (Preservision Areds) PO SCH (19:46)
[2019-12-15] MEDS ORDERED: Ketorolac 15 MG/ML VIAL IVP ONE (19:48)
[2019-12-15] MEDS ORDERED: Metoclopramide 10 MG/2 ML VIAL IVP ONE (19:49)
[2019-12-16 03:06] LABS: INR 1.3; Prothrombin Time 14.2 Seconds (9.4-12.1)
[2019-12-16 03:08] LABS: Basophils # 0.1 K/mcL (0.0-0.2); Basophils % 0.7 %; Eosinophils # 0.3 K/mcL (0.0-0.6); Eosinophils % 2.5 %; Hematocrit 26.7 % (35.3-44.9); Hemoglobin 8.3 g/dL (11.5-15.4); Immature Granulocytes % 0.5 % (0-4); Lymphocytes # 1.2 K/mcL (0.6-4.6); Lymphocytes % 11.7 %; Mean Corpuscular HGB Conc 31.1 g/dL (31.6-35.5); Mean Corpuscular Hemoglobin 31.9 pg (28.0-33.3); Mean Corpuscular Volume 102.7 fL (83.0-100.0); Monocytes # 0.9 K/mcL (0.0-1.3); Monocytes % 8.6 %; Neutrophils # 7.7 K/mcL (1.6-8.9); Platelet Count 187 K/mcL (140-400); Red Cell Distribution Width 15.4 % (11.5-14.5); White Blood Count 10.1 K/mcL (4.3-11.1)
[2019-12-16 03:20] LABS: BUN/Creatinine Ratio 38 (6-26); Blood Urea Nitrogen 23 mg/dL (8-23); Calcium 8.7 mg/dL (8.6-10.3); Carbon Dioxide 26 mEq/L (23-29); Chloride 106 mEq/L (98-107); Glucose 115 mg/dL (70-105); Osmolality,Calculated 293 (280-300); Sodium 139 mEq/L (136-145); eGFR For African Americans > 60 (> 60); eGFR For Non-African Americans > 60 (> 60)
[2019-12-16 03:21] LABS: Magnesium 1.8 mg/dL (1.6-2.6); Phosphorous 2.5 mg/dL (2.7-4.5)
[2019-12-16] MEDS: Aspirin 81 MG TAB.CHEW PO SCH (07:09)
[2019-12-16] MEDS ORDERED: Ondansetron 4 MG/2 ML VIAL ONE (07:24)
[2019-12-16] MEDS ORDERED: *HR* FentaNYL (PF) 100 MCG/2 ML VIAL ONE ×2 (07:24→10:41)
[2019-12-16] MEDS ORDERED: Tranexamic Acid 1,000 MG/10 ML VIAL ONE (07:24)
[2019-12-16] MEDS ORDERED: Lidocaine HCL 4 ML Topical Solution (Laryng-O-Jet Kit Sterile Pak) TP ONE (07:24)
[2019-12-16] MEDS ORDERED: *HR* Succinylcholine 200 MG/10 ML VIAL IVP ONE (07:24)
[2019-12-16] MEDS ORDERED: Lidocaine -MPF 2% 2 ML VIAL ONE (07:24)
[2019-12-16] MEDS ORDERED: Dexamethasone 4 MG/ML VIAL ONE (07:24)
[2019-12-16] MEDS ORDERED: *HR* Propofol 200 MG/20 ML VIAL IVP ONE (07:25)
[2019-12-16] MEDS ORDERED: *HR* PHENYLEPHRINE 1,000 MCG/10 ML SYRINGE IVP ONE (07:27)
[2019-12-16] MEDS: Acetaminophen 325 MG TABLET PO PRN (07:33)
[2019-12-16] MEDS: DilTIAZem CD (24hr) 120 MG CAP.ER.24H PO SCH (07:33)
[2019-12-16] MEDS: Metoprolol XL (24 HR) Succ 25 MG TAB.ER.24H PO SCH (07:33)
[2019-12-16] MEDS ORDERED: *HR* EPINEPHrine 30 MG/30 ML MDV ONE (07:36)
[2019-12-16] MEDS ORDERED: Povidone-Iodine 45 ML, Sodium Chloride IRRigation 1,000 ML IR ONE (07:45)
[2019-12-16] MEDS ORDERED: TOTAL JOINT MIXTURE (100ML) INTRAART ONE (07:45)
[2019-12-16] MEDS ORDERED: Famotidine 20 MG/2 ML VIAL ONE (07:48)
[2019-12-16] MEDS ORDERED: Acetaminophen IV 1,000 MG/100 ML INFUS..BTL ONE (07:48)
[2019-12-16] MEDS ORDERED: Vancomycin 1,000 MG VIAL ONE ×2 (08:14→09:13)
[2019-12-16] MEDS ORDERED: *HR* Phenylephrine 10 MG/ML VIAL ONE (09:07)
[2019-12-16] MEDS ORDERED: *HR* HYDROmorphone PF 0.5 MG/0.5 ML SYRINGE IVP PRN (10:58)
[2019-12-16] MEDS ORDERED: *HR* Metoprolol 5 MG/5 ML VIAL IVP PRN (10:58)
[2019-12-16] MEDS ORDERED: Ondansetron 4 MG/2 ML VIAL IVP PRN (10:58)
[2019-12-16] MEDS ORDERED: *HR* Promethazine 25 MG/ML VIAL IVP PRN (11:58)
[2019-12-16] MEDS ORDERED: Sennosides 8.6 MG TABLET PO PRN (11:58)
[2019-12-16] MEDS ORDERED: Ringers Solution, Lactated 1,000 ML IVC SCH (12:00)
[2019-12-16] MEDS: (Preservision Areds) PO SCH ×2 (12:02→21:23)
[2019-12-16] MEDS ORDERED: SYSTANE EYE DROP OP PRN (15:01)
[2019-12-16] MEDS: Ascorbic Acid 500 MG TABLET PO SCH (15:57)
[2019-12-16] MEDS: CeFAZolin 2 GM/120 ML BAG IVPB SCH ×2 (15:57→23:26)
[2019-12-16] MEDS: Ondansetron 4 MG/2 ML VIAL IVP PRN (15:59)
[2019-12-16] MEDS ORDERED: MOM Conc 10 ML UD.LIQ PO PRN (21:00)
[2019-12-16] MEDS: ALPRAZolam 0.5 MG TABLET PO SCH (21:25)
[2019-12-17 06:04] LABS: Basophils % 0.3 %; Eosinophils % 0.2 %; Hematocrit 26.2 % (35.3-44.9); Hemoglobin 8.9 g/dL (11.5-15.4); Immature Granulocytes % 0.2 % (0-4); Immature Platelets 2.9 % (1.1-6.1); Lymphocytes # 1.3 K/mcL (0.6-4.6); Lymphocytes % 14.2 %; Mean Corpuscular Volume 91.3 fL (83.0-100.0); Monocytes # 1.1 K/mcL (0.0-1.3); Monocytes % 12.8 %; Neutrophils # 6.4 K/mcL (1.6-8.9); Platelet Count 144 K/mcL (140-400); Red Blood Count 2.87 M/mcL (3.82-4.97); Red Cell Distribution Width 18.3 % (11.5-14.5); Segmented Neutrophils % 72.3 %; White Blood Count 8.8 K/mcL (4.3-11.1)
[2019-12-17 06:17] LABS: BUN/Creatinine Ratio 30 (6-26); Blood Urea Nitrogen 16 mg/dL (8-23); Calcium 7.7 mg/dL (8.6-10.3); Carbon Dioxide 24 mEq/L (23-29); Chloride 107 mEq/L (98-107); Glucose 122 mg/dL (70-105); Osmolality,Calculated 286 (280-300); Potassium 3.4 mEq/L (3.5-5.1); Sodium 137 mEq/L (136-145); eGFR For African Americans > 60 (> 60); eGFR For Non-African Americans > 60 (> 60)
[2019-12-17] MEDS: Aspirin 81 MG TAB.CHEW PO SCH (08:37)
[2019-12-17] MEDS: Multivit/Ca/Min/Fe/FA 1 TAB TABLET PO SCH (08:37)
[2019-12-17] MEDS: Ascorbic Acid 500 MG TABLET PO SCH ×2 (08:37→16:05)
[2019-12-17] MEDS: Acetaminophen 325 MG TABLET PO PRN (08:37)
[2019-12-17] MEDS: DilTIAZem CD (24hr) 120 MG CAP.ER.24H PO SCH ×2 (08:38→09:52)
[2019-12-17] MEDS: Metoprolol XL (24 HR) Succ 25 MG TAB.ER.24H PO SCH (08:38)
[2019-12-17] MEDS: Apixaban 2.5 MG TABLET PO SCH ×2 (09:51→21:45)
[2019-12-17] MEDS: (Preservision Areds) PO SCH ×2 (15:15→21:46)
[2019-12-17] MEDS: ALPRAZolam 0.5 MG TABLET PO SCH (21:45)
[2019-12-18 05:50] LABS: Basophils % 0.2 %; Eosinophils # 0.1 K/mcL (0.0-0.6); Eosinophils % 1.1 %; Hematocrit 27.1 % (35.3-44.9); Hemoglobin 8.7 g/dL (11.5-15.4); Immature Granulocytes % 0.6 % (0-4); Lymphocytes # 1.9 K/mcL (0.6-4.6); Mean Corpuscular HGB Conc 32.1 g/dL (31.6-35.5); Mean Corpuscular Hemoglobin 29.7 pg (28.0-33.3); Mean Corpuscular Volume 92.5 fL (83.0-100.0); Mean Platelet Volume 10.3 fL (9.4-12.4); Monocytes # 1.1 K/mcL (0.0-1.3); Monocytes % 13.1 %; Neutrophils # 5.3 K/mcL (1.6-8.9); Platelet Count 130 K/mcL (140-400); Red Blood Count 2.93 M/mcL (3.82-4.97); Red Cell Distribution Width 17.6 % (11.5-14.5); White Blood Count 8.5 K/mcL (4.3-11.1)
[2019-12-18 05:52] LABS: BUN/Creatinine Ratio 31 (6-26); Blood Urea Nitrogen 20 mg/dL (8-23); Calcium 7.9 mg/dL (8.6-10.3); Carbon Dioxide 26 mEq/L (23-29); Chloride 105 mEq/L (98-107); Glucose 122 mg/dL (70-105); Osmolality,Calculated 288 (280-300); Potassium 3.4 mEq/L (3.5-5.1); Sodium 137 mEq/L (136-145); eGFR For African Americans > 60 (> 60); eGFR For Non-African Americans > 60 (> 60)
[2019-12-18] MEDS: Metoprolol XL (24 HR) Succ 25 MG TAB.ER.24H PO SCH (07:55)
[2019-12-18] MEDS: Multivit/Ca/Min/Fe/FA 1 TAB TABLET PO SCH (07:55)
[2019-12-18] MEDS: Ascorbic Acid 500 MG TABLET PO SCH ×2 (07:55→16:37)
[2019-12-18] MEDS: DilTIAZem CD (24hr) 120 MG CAP.ER.24H PO SCH (07:56)
[2019-12-18] MEDS: Acetaminophen 325 MG TABLET PO PRN ×2 (07:56→16:37)
[2019-12-18] MEDS: Apixaban 2.5 MG TABLET PO SCH ×2 (07:57→21:20)
[2019-12-18] MEDS: (Preservision Areds) PO SCH ×2 (07:57→21:22)
[2019-12-18] MEDS: Aspirin 81 MG TAB.CHEW PO SCH (07:57)
[2019-12-18 09:18] LABS: Bilirubin,Urine Negative (Negative); Blood,Urine Moderate (Negative); Clarity,Urine Clear (Clear); Color,Urine Yellow (Yellow); Glucose,Urine (UA) Normal (Normal); Ketones,Urine 10 mg/dL (Negative); Leukocyte Esterase,Urine Negative (Negative); Mucus,Urine Few per lpf (None-Few); Nitrite,Urine Negative (Negative); Protein,Urine 70 mg/dL (Neg-Trace); RBC,Urine 50-100 per hpf (0-3); Specific Gravity,Urine 1.027 (1.010-1.025); Urobilinogen,Urine Normal (Normal); WBC,Urine 0-3 per hpf (0-3)
[2019-12-18] MEDS: 0.9 % Sodium Chloride 1,000 ML IVC SCH (13:10)
[2019-12-18] MEDS ORDERED: QUEtiapine Fumarate 25 MG TABLET PO SCH (21:00)
[2019-12-18] MEDS: ALPRAZolam 0.5 MG TABLET PO SCH (21:20)
[2019-12-19] MEDS: 0.9 % Sodium Chloride 1,000 ML IVC SCH (02:53)
[2019-12-19] MEDS: Acetaminophen 325 MG TABLET PO PRN (02:59)
[2019-12-19 04:43] LABS: Basophils % 0.5 %; Eosinophils # 0.3 K/mcL (0.0-0.6); Eosinophils % 4.6 %; Hematocrit 24.1 % (35.3-44.9); Hemoglobin 7.7 g/dL (11.5-15.4); Immature Granulocytes % 0.6 % (0-4); Lymphocytes # 1.2 K/mcL (0.6-4.6); Lymphocytes % 18.8 %; Mean Corpuscular Hemoglobin 30.7 pg (28.0-33.3); Mean Platelet Volume 10.2 fL (9.4-12.4); Monocytes # 0.7 K/mcL (0.0-1.3); Monocytes % 10.4 %; Neutrophils # 4.3 K/mcL (1.6-8.9); Platelet Count 126 K/mcL (140-400); Red Blood Count 2.51 M/mcL (3.82-4.97); Red Cell Distribution Width 17.1 % (11.5-14.5); Segmented Neutrophils % 65.1 %; White Blood Count 6.5 K/mcL (4.3-11.1)
[2019-12-19 04:53] LABS: BUN/Creatinine Ratio 37 (6-26); Blood Urea Nitrogen 19 mg/dL (8-23); Calcium 7.4 mg/dL (8.6-10.3); Carbon Dioxide 23 mEq/L (23-29); Chloride 109 mEq/L (98-107); Glucose 101 mg/dL (70-105); Osmolality,Calculated 290 (280-300); Potassium 3.8 mEq/L (3.5-5.1); Sodium 139 mEq/L (136-145); eGFR For African Americans > 60 (> 60); eGFR For Non-African Americans > 60 (> 60)
[2019-12-19] MEDS: Ascorbic Acid 500 MG TABLET PO SCH (09:53)
[2019-12-19] MEDS: Multivit/Ca/Min/Fe/FA 1 TAB TABLET PO SCH (09:53)
[2019-12-19] MEDS: Apixaban 2.5 MG TABLET PO SCH (09:53)
[2019-12-19] MEDS: Aspirin 81 MG TAB.CHEW PO SCH (09:55)
[2019-12-19] MEDS: Metoprolol XL (24 HR) Succ 25 MG TAB.ER.24H PO SCH (09:55)
[2019-12-19] MEDS: DilTIAZem CD (24hr) 120 MG CAP.ER.24H PO SCH (09:55)
[2019-12-19 12:14] VITALS: BP 107/69
== END 2019-12-19 18:30 | DRG 470 ==
LOC: 3NENU → SUATTDRO 12-15 02:46
PROVIDERS: ADMIT Student in an Organized Health Care Education/Training Program; ATTEND Internal Medicine

== ENCOUNTER 2021-03-01 10:47 | Observation (INO) ==
[2021-03-01] MEDS ORDERED: 0.9 % Sodium Chloride 1,000 ML IVC ONE (11:24)
[2021-03-01 13:27] LABS: Influenza A PCR Negative (Negative); Influenza B PCR Negative (Negative); Resp. Syncytial Virus PCR Negative (Negative)
[2021-03-01 13:28] LABS: SARS-CoV-2 by PCR (In House) Positive (Negative)
[2021-03-01 14:02] LABS: Mean Corpuscular Hemoglobin 32.8 pg (28.0-33.3); Segmented Neutrophils % 62.3 %
[2021-03-01 14:03] LABS: Hematocrit 34.6 % (35.3-44.9); Hemoglobin 11.2 g/dL (11.5-15.4); Immature Platelets 3.1 % (1.1-6.1); Lymphocytes # 0.7 K/mcL (0.6-4.6); Lymphocytes % 32.4 %; Mean Corpuscular HGB Conc 32.4 g/dL (31.6-35.5); Mean Corpuscular Volume 101.5 fL (83.0-100.0); Mean Platelet Volume 10.7 fL (9.4-12.4); Monocytes # 0.1 K/mcL (0.0-1.3); Monocytes % 4.3 %; Neutrophils # 1.3 K/mcL (1.6-8.9); Red Blood Count 3.41 M/mcL (3.82-4.97); Red Cell Distribution Width 13.9 % (11.5-14.5); White Blood Count 2.1 K/mcL (4.3-11.1)
[2021-03-01 14:09] LABS: INR 1.2; Prothrombin Time 13.4 Seconds (9.4-12.1)
[2021-03-01 14:11] LABS: Activated Partial Thrombo Time 32.2 Seconds (26.0-36.0)
[2021-03-01 14:23] LABS: Alanine Aminotransferase 124 Units/L (7-52); Albumin 3.5 g/dL (3.5-5.7); Albumin/Globulin Ratio 1.3 (1.1-2.2); Alkaline Phosphatase 93 Units/L (34-104); Aspartate Amino Transferase 70 Units/L (13-39); BUN/Creatinine Ratio 24 (6-26); Bilirubin,Direct 0.1 mg/dL (0.0-0.2); Bilirubin,Indirect 0.4 mg/dL (0.0-1.0); Bilirubin,Total 0.5 mg/dL (0.3-1.0); Blood Urea Nitrogen 18 mg/dL (8-23); Calcium 8.2 mg/dL (8.6-10.3); Carbon Dioxide 24 mEq/L (23-29); Chloride 104 mEq/L (98-107); Globulin 2.7 g/dL (2.4-3.5); Glucose 98 mg/dL (70-105); Magnesium 1.7 mg/dL (1.6-2.6); Osmolality,Calculated 290 (280-300); Phosphorous 2.8 mg/dL (2.7-4.5); Potassium 3.4 mEq/L (3.5-5.1); Sodium 139 mEq/L (136-145); Total Protein 6.2 g/dL (6.4-8.9); eGFR For African Americans > 60 (> 60); eGFR For Non-African Americans > 60 (> 60)
[2021-03-01 14:24] LABS: VBG HCO3 26 mEq/L (21-27); VBG PCO2 45 mmHg (41-51); VBG PH 7.37 pH Units (7.32-7.42); VBG PO2 41 mmHg (25-50)
[2021-03-01 14:28] LABS: Troponin I 0.09 ng/mL (< 0.04)
[2021-03-01 14:48] LABS: Platelet Count 85 K/mcL (140-400)
[2021-03-01 14:49] LABS: Platelet Estimate Decreased (Normal)
[2021-03-01] MEDS ORDERED: *HR* HYDROcodone/Acet 5/325 mg TABLET PO PRN (15:53)
[2021-03-01] MEDS ORDERED: Naloxone 0.4 MG/ML INJ IVP PRN (15:53)
[2021-03-01] MEDS ORDERED: Ondansetron 4 MG/2 ML VIAL IVP PRN (15:53)
[2021-03-01] MEDS ORDERED: Albuterol 2.5 MG/3 ML NEBULIZER IH PRN (15:56)
[2021-03-01] MEDS ORDERED: Ipratropium 1 PUFF INHALER IH PRN (15:56)
[2021-03-01] MEDS ORDERED: QUEtiapine Fumarate 25 MG TABLET PO PRN (15:57)
[2021-03-01] MEDS ORDERED: Metoprolol XL (24 HR) Succ 25 MG TAB.ER.24H PO ONE (15:59)
[2021-03-01 16:24] LABS: Bilirubin,Urine Negative (Negative); Blood,Urine Moderate (Negative); Clarity,Urine Clear (Clear); Color,Urine Yellow (Yellow); Glucose,Urine (UA) Normal (Normal); Ketones,Urine 80 mg/dL (Negative); Leukocyte Esterase,Urine Negative (Negative); Nitrite,Urine Negative (Negative); PH,Urine 6.5 pH Units (5.0-8.0); Protein,Urine 100 mg/dL (Neg-Trace); Specific Gravity,Urine 1.025 (1.010-1.025); Urobilinogen,Urine Normal (Normal)
[2021-03-01] MEDS ORDERED: 0.9 % Sodium Chloride 500 ML IVC SCH (16:30)
[2021-03-01 16:31] LABS: Hyaline Casts,Urine Few per lpf (None Seen); Mucus,Urine Few per lpf (None-Few); RBC,Urine 50-100 per hpf (0-3); WBC,Urine 0-3 per hpf (0-3)
[2021-03-01] MEDS: Apixaban 2.5 MG TABLET PO SCH (20:31)
[2021-03-01] MEDS ORDERED: ALPRAZolam 0.5 MG TABLET PO SCH (21:00)
[2021-03-02 01:39] LABS: Eosinophils % 0.5 %; Hematocrit 28.1 % (35.3-44.9); Immature Granulocytes % 0.5 % (0-4); Lymphocytes # 1.1 K/mcL (0.6-4.6); Lymphocytes % 53.6 %; Mean Corpuscular HGB Conc 33.5 g/dL (31.6-35.5); Mean Corpuscular Hemoglobin 33.8 pg (28.0-33.3); Mean Corpuscular Volume 101.1 fL (83.0-100.0); Monocytes # 0.1 K/mcL (0.0-1.3); Monocytes % 6.6 %; Neutrophils # 0.8 K/mcL (1.6-8.9); Red Blood Count 2.78 M/mcL (3.82-4.97); Red Cell Distribution Width 13.9 % (11.5-14.5); Segmented Neutrophils % 38.8 %; White Blood Count 2.1 K/mcL (4.3-11.1)
[2021-03-02 01:40] LABS: Hemoglobin 9.4 g/dL (11.5-15.4); Platelet Count 63 K/mcL (140-400)
[2021-03-02 01:58] LABS: BUN/Creatinine Ratio 27 (6-26); Blood Urea Nitrogen 15 mg/dL (8-23); Calcium 7.8 mg/dL (8.6-10.3); Carbon Dioxide 22 mEq/L (23-29); Chloride 107 mEq/L (98-107); Glucose 95 mg/dL (70-105); Magnesium 1.6 mg/dL (1.6-2.6); Osmolality,Calculated 285 (280-300); Phosphorous 1.9 mg/dL (2.7-4.5); Potassium 3.4 mEq/L (3.5-5.1); Sodium 137 mEq/L (136-145); eGFR For African Americans > 60 (> 60); eGFR For Non-African Americans > 60 (> 60)
[2021-03-02] MEDS: Apixaban 2.5 MG TABLET PO SCH (08:31)
[2021-03-02] MEDS ORDERED: DilTIAZem CD (24hr) 120 MG CAP.ER.24H PO SCH (09:00)
[2021-03-02] MEDS ORDERED: Aspirin Enteric Coated 81 MG Tablet PO SCH (09:00)
[2021-03-02] MEDS ORDERED: Sennosides/Docusate Sodium TABLET PO SCH (09:00)
[2021-03-02] MEDS ORDERED: Metoprolol XL (24 HR) Succ 25 MG TAB.ER.24H PO SCH (09:00)
[2021-03-02 14:53] VITALS: BP 107/69; PULSE 81; TEMP 98; O2SAT 97
== END 2021-03-02 18:00 | disposition home health service (06) ==
LOC: 3BNU 10:47 → EMEROOARM 10:47 → SUATTDRO 16:12 → 3BNU 16:47
PROVIDERS: ADMIT Hospitalist; ATTEND Internal Medicine

== ENCOUNTER 2021-03-03 13:57 | Inpatient (IN) ==
[2021-03-03 14:54] LABS: Mean Platelet Volume 10.3 fL (9.4-12.4); Red Cell Distribution Width 13.8 % (11.5-14.5)
[2021-03-03 14:56] LABS: Basophils % 0.4 %; Eosinophils % 0.4 %; Hematocrit 34.9 % (35.3-44.9); Hemoglobin 11.3 g/dL (11.5-15.4); Immature Granulocytes % 0.4 % (0-4); Immature Platelets 3.9 % (1.1-6.1); Lymphocytes # 0.6 K/mcL (0.6-4.6); Lymphocytes % 25.3 %; Mean Corpuscular HGB Conc 32.4 g/dL (31.6-35.5); Mean Corpuscular Hemoglobin 32.8 pg (28.0-33.3); Mean Corpuscular Volume 101.2 fL (83.0-100.0); Monocytes # 0.1 K/mcL (0.0-1.3); Monocytes % 4.9 %; Red Blood Count 3.45 M/mcL (3.82-4.97); Segmented Neutrophils % 68.6 %; White Blood Count 2.3 K/mcL (4.3-11.1)
[2021-03-03 14:57] LABS: Neutrophils # 1.6 K/mcL (1.6-8.9); Platelet Count 82 K/mcL (140-400)
[2021-03-03] MEDS ORDERED: *HR* Metoprolol 5 MG/5 ML VIAL IVP ONE (15:13)
[2021-03-03] MEDS: 0.9 % Sodium Chloride 1,000 ML IVC SCH (15:33)
[2021-03-03 15:38] LABS: Alanine Aminotransferase 89 Units/L (7-52); Albumin 3.5 g/dL (3.5-5.7); Albumin/Globulin Ratio 1.4 (1.1-2.2); Alkaline Phosphatase 91 Units/L (34-104); Aspartate Amino Transferase 54 Units/L (13-39); BUN/Creatinine Ratio 20 (6-26); Bilirubin,Direct 0.1 mg/dL (0.0-0.2); Bilirubin,Indirect 0.5 mg/dL (0.0-1.0); Bilirubin,Total 0.6 mg/dL (0.3-1.0); Blood Urea Nitrogen 14 mg/dL (8-23); Calcium 8.6 mg/dL (8.6-10.3); Carbon Dioxide 26 mEq/L (23-29); Chloride 104 mEq/L (98-107); Globulin 2.5 g/dL (2.4-3.5); Glucose 109 mg/dL (70-105); Osmolality,Calculated 289 (280-300); Potassium 3.2 mEq/L (3.5-5.1); Sodium 139 mEq/L (136-145); Troponin I 0.04 ng/mL (< 0.04); eGFR For African Americans > 60 (> 60); eGFR For Non-African Americans > 60 (> 60)
[2021-03-03] MEDS ORDERED: Naloxone 0.4 MG/ML INJ IVP PRN (16:21)
[2021-03-03] MEDS: Melatonin 3 MG TABLET PO PRN (19:30)
[2021-03-03 20:31] LABS: Bilirubin,Urine Negative (Negative); Blood,Urine Trace (Negative); Clarity,Urine Clear (Clear); Color,Urine Yellow (Yellow); Glucose,Urine (UA) Normal (Normal); Ketones,Urine 20 mg/dL (Negative); Leukocyte Esterase,Urine Trace (Negative); Mucus,Urine Few per lpf (None-Few); Nitrite,Urine Negative (Negative); PH,Urine 6.5 pH Units (5.0-8.0); Protein,Urine 50 mg/dL (Neg-Trace); RBC,Urine 15-30 per hpf (0-3); Specific Gravity,Urine 1.024 (1.010-1.025); Squamous Epithelial Cell,Urine Few per hpf (None-Few); Urobilinogen,Urine Normal (Normal)
[2021-03-04] MEDS: 0.9 % Sodium Chloride 1,000 ML IVC SCH (03:59)
[2021-03-04 06:41] LABS: Basophils % 0.5 %; Hematocrit 28.1 % (35.3-44.9); Hemoglobin 8.9 g/dL (11.5-15.4); Immature Granulocytes % 0.5 % (0-4); Immature Platelets 3.3 % (1.1-6.1); Lymphocytes # 0.7 K/mcL (0.6-4.6); Mean Corpuscular HGB Conc 31.7 g/dL (31.6-35.5); Mean Corpuscular Hemoglobin 32.1 pg (28.0-33.3); Mean Corpuscular Volume 101.4 fL (83.0-100.0); Mean Platelet Volume 10.3 fL (9.4-12.4); Monocytes # 0.2 K/mcL (0.0-1.3); Red Blood Count 2.77 M/mcL (3.82-4.97); Red Cell Distribution Width 14.1 % (11.5-14.5); White Blood Count 1.9 K/mcL (4.3-11.1)
[2021-03-04 06:51] LABS: Platelet Count 85 K/mcL (140-400)
[2021-03-04 07:01] LABS: BUN/Creatinine Ratio 19 (6-26); Blood Urea Nitrogen 12 mg/dL (8-23); Calcium 7.6 mg/dL (8.6-10.3); Carbon Dioxide 23 mEq/L (23-29); Chloride 107 mEq/L (98-107); Glucose 97 mg/dL (70-105); Osmolality,Calculated 288 (280-300); Potassium 3.8 mEq/L (3.5-5.1); Sodium 139 mEq/L (136-145); eGFR For African Americans > 60 (> 60); eGFR For Non-African Americans > 60 (> 60)
[2021-03-04 07:10] LABS: Platelet Estimate Slight Decrease (Normal)
[2021-03-04] MEDS ORDERED: Ondansetron 4 MG/2 ML VIAL IVP PRN (09:20)
[2021-03-04 11:07] LABS: Iron 69 mcg/dL (50-170)
[2021-03-04 11:33] LABS: Folate > 22.3 ng/mL (3.0-16.0); Vitamin B12 833 pg/mL (250-1100)
[2021-03-04 11:39] LABS: Ferritin > 1500 ng/mL (10-120)
[2021-03-04] MEDS: Aspirin Enteric Coated 81 MG Tablet PO SCH (11:48)
[2021-03-04] MEDS: Apixaban 2.5 MG TABLET PO SCH ×2 (11:48→20:59)
[2021-03-04] MEDS: Fluticasone Propionate Nasal 50 MCG/SPRAY BOTTLE NS SCH (11:48)
[2021-03-04] MEDS: Ascorbic Acid 500 MG TABLET PO SCH ×2 (11:48→16:54)
[2021-03-04] MEDS: Metoprolol XL (24 HR) Succ 25 MG TAB.ER.24H PO SCH (11:48)
[2021-03-04] MEDS: Sennosides/Docusate Sodium TABLET PO SCH (11:49)
[2021-03-04] MEDS: Multivit/Ca/Min/Fe/FA 1 TAB TABLET PO SCH ×2 (11:49→20:59)
[2021-03-04] MEDS: Pantoprazole 40 MG VIAL IVP SCH ×2 (11:57→20:58)
[2021-03-04] MEDS: Acetaminophen 325 MG TABLET PO PRN (12:18)
[2021-03-04] MEDS: ALPRAZolam 1 MG TABLET PO SCH (20:59)
[2021-03-05 02:35] LABS: Basophils % 0.6 %; Eosinophils % 1.2 %; Hemoglobin 8.1 g/dL (11.5-15.4)
[2021-03-05 02:38] LABS: Hematocrit 24.4 % (35.3-44.9); Immature Granulocytes % 0.6 % (0-4); Immature Platelets 3.9 % (1.1-6.1); Lymphocytes # 0.8 K/mcL (0.6-4.6); Lymphocytes % 47.2 %; Mean Corpuscular HGB Conc 33.2 g/dL (31.6-35.5); Mean Corpuscular Hemoglobin 33.1 pg (28.0-33.3); Mean Corpuscular Volume 99.6 fL (83.0-100.0); Mean Platelet Volume 9.9 fL (9.4-12.4); Monocytes # 0.1 K/mcL (0.0-1.3); Monocytes % 8.1 %; Neutrophils # 0.7 K/mcL (1.6-8.9); Platelet Count 100 K/mcL (140-400); Red Blood Count 2.45 M/mcL (3.82-4.97); Red Cell Distribution Width 13.7 % (11.5-14.5); Segmented Neutrophils % 42.3 %; White Blood Count 1.6 K/mcL (4.3-11.1)
[2021-03-05] MEDS: Acetaminophen 325 MG TABLET PO PRN (02:46)
[2021-03-05 02:54] LABS: BUN/Creatinine Ratio 22 (6-26); Blood Urea Nitrogen 11 mg/dL (8-23); Calcium 7.6 mg/dL (8.6-10.3); Carbon Dioxide 25 mEq/L (23-29); Chloride 107 mEq/L (98-107); Glucose 92 mg/dL (70-105); Osmolality,Calculated 285 (280-300); Potassium 3.3 mEq/L (3.5-5.1); Sodium 138 mEq/L (136-145); eGFR For African Americans > 60 (> 60); eGFR For Non-African Americans > 60 (> 60)
[2021-03-05 03:11] LABS: Platelet Estimate Slight Decrease (Normal)
[2021-03-05] MEDS: Aspirin Enteric Coated 81 MG Tablet PO SCH (10:23)
[2021-03-05] MEDS: Sennosides/Docusate Sodium TABLET PO SCH (10:24)
[2021-03-05] MEDS: Multivit/Ca/Min/Fe/FA 1 TAB TABLET PO SCH ×2 (10:24→20:59)
[2021-03-05] MEDS: Metoprolol XL (24 HR) Succ 25 MG TAB.ER.24H PO SCH ×2 (10:24→20:58)
[2021-03-05] MEDS: Pantoprazole 40 MG VIAL IVP SCH ×2 (10:24→20:59)
[2021-03-05] MEDS: Apixaban 2.5 MG TABLET PO SCH ×2 (10:24→20:59)
[2021-03-05] MEDS: Ascorbic Acid 500 MG TABLET PO SCH ×2 (10:27→15:51)
[2021-03-05] MEDS: Fluticasone Propionate Nasal 50 MCG/SPRAY BOTTLE NS SCH (10:31)
[2021-03-05] MEDS ORDERED: 0.9 % Sodium Chloride 500 ML IVC ONE ×2 (11:57→13:07)
[2021-03-05] MEDS ORDERED: 0.9 % Sodium Chloride 500 ML ONE (12:07)
[2021-03-05] MEDS ORDERED: *HR* Metoprolol 5 MG/5 ML VIAL IVP ONE ×4 (13:50→16:30)
[2021-03-05] MEDS: ALPRAZolam 1 MG TABLET PO SCH (20:58)
[2021-03-06 04:53] LABS: Hematocrit 26.4 % (35.3-44.9); Hemoglobin 8.5 g/dL (11.5-15.4); Immature Granulocytes % 0.9 % (0-4); Lymphocytes % 46.8 %; Mean Corpuscular HGB Conc 32.2 g/dL (31.6-35.5); Mean Corpuscular Hemoglobin 32.8 pg (28.0-33.3); Mean Corpuscular Volume 101.9 fL (83.0-100.0); Mean Platelet Volume 10.4 fL (9.4-12.4); Monocytes % 8.6 %; Platelet Count 115 K/mcL (140-400); Red Blood Count 2.59 M/mcL (3.82-4.97); Red Cell Distribution Width 14.1 % (11.5-14.5); Segmented Neutrophils % 42.3 %; White Blood Count 2.2 K/mcL (4.3-11.1)
[2021-03-06 04:54] LABS: Basophils % 0.5 %; Eosinophils % 0.9 %; Monocytes # 0.2 K/mcL (0.0-1.3); Neutrophils # 0.9 K/mcL (1.6-8.9)
[2021-03-06 04:59] LABS: BUN/Creatinine Ratio 25 (6-26); Blood Urea Nitrogen 14 mg/dL (8-23); Calcium 7.6 mg/dL (8.6-10.3); Carbon Dioxide 21 mEq/L (23-29); Chloride 107 mEq/L (98-107); Glucose 85 mg/dL (70-105); Osmolality,Calculated 284 (280-300); Potassium 3.6 mEq/L (3.5-5.1); Sodium 137 mEq/L (136-145); eGFR For African Americans > 60 (> 60); eGFR For Non-African Americans > 60 (> 60)
[2021-03-06 06:46] LABS: Reactive Lymphocytes Present (Not Present)
[2021-03-06 06:47] LABS: Platelet Estimate Decreased (Normal)
[2021-03-06] MEDS: Metoprolol XL (24 HR) Succ 25 MG TAB.ER.24H PO SCH ×2 (09:12→21:23)
[2021-03-06] MEDS: Apixaban 2.5 MG TABLET PO SCH ×2 (09:13→20:41)
[2021-03-06] MEDS: Pantoprazole 40 MG VIAL IVP SCH (09:16)
[2021-03-06] MEDS: Sennosides/Docusate Sodium TABLET PO SCH (09:25)
[2021-03-06] MEDS: Ascorbic Acid 500 MG TABLET PO SCH ×2 (09:25→17:15)
[2021-03-06] MEDS: Fluticasone Propionate Nasal 50 MCG/SPRAY BOTTLE NS SCH (09:25)
[2021-03-06] MEDS: Multivit/Ca/Min/Fe/FA 1 TAB TABLET PO SCH ×2 (09:25→20:41)
[2021-03-06] MEDS: Aspirin Enteric Coated 81 MG Tablet PO SCH (09:25)
[2021-03-06] MEDS: Acetaminophen 325 MG TABLET PO PRN (11:40)
[2021-03-06] MEDS: Melatonin 3 MG TABLET PO PRN (20:41)
[2021-03-06] MEDS: ALPRAZolam 1 MG TABLET PO SCH (20:41)
[2021-03-07] MEDS: Apixaban 2.5 MG TABLET PO SCH ×2 (08:52→20:32)
[2021-03-07] MEDS: Ascorbic Acid 500 MG TABLET PO SCH ×2 (08:52→17:37)
[2021-03-07] MEDS: Aspirin Enteric Coated 81 MG Tablet PO SCH (08:53)
[2021-03-07] MEDS: Sennosides/Docusate Sodium TABLET PO SCH (08:53)
[2021-03-07] MEDS: Multivit/Ca/Min/Fe/FA 1 TAB TABLET PO SCH ×2 (08:53→20:32)
[2021-03-07] MEDS: Metoprolol XL (24 HR) Succ 25 MG TAB.ER.24H PO SCH ×3 (08:54→20:32)
[2021-03-07] MEDS: Fluticasone Propionate Nasal 50 MCG/SPRAY BOTTLE NS SCH (08:54)
[2021-03-07] MEDS ORDERED: 0.9 % Sodium Chloride 1,000 ML IVC ONE (11:49)
[2021-03-07] MEDS: Acetaminophen 325 MG TABLET PO PRN (13:14)
[2021-03-07] MEDS ORDERED: 0.9 % Sodium Chloride 1,000 ML IV ONE (16:32)
[2021-03-07] MEDS: ALPRAZolam 1 MG TABLET PO SCH (20:31)
[2021-03-08] MEDS: Sennosides/Docusate Sodium TABLET PO SCH (08:33)
[2021-03-08] MEDS: Multivit/Ca/Min/Fe/FA 1 TAB TABLET PO SCH ×2 (08:33→21:50)
[2021-03-08] MEDS: Apixaban 2.5 MG TABLET PO SCH ×2 (08:33→21:51)
[2021-03-08] MEDS: Ascorbic Acid 500 MG TABLET PO SCH ×2 (08:33→17:47)
[2021-03-08] MEDS: Aspirin Enteric Coated 81 MG Tablet PO SCH (08:33)
[2021-03-08] MEDS: Fluticasone Propionate Nasal 50 MCG/SPRAY BOTTLE NS SCH (08:34)
[2021-03-08] MEDS: Metoprolol XL (24 HR) Succ 25 MG TAB.ER.24H PO SCH ×2 (08:34→21:51)
[2021-03-08] MEDS: Acetaminophen 325 MG TABLET PO PRN ×2 (08:51→17:47)
[2021-03-08] MEDS: ALPRAZolam 1 MG TABLET PO SCH (21:51)
[2021-03-09] MEDS: Multivit/Ca/Min/Fe/FA 1 TAB TABLET PO SCH (08:43)
[2021-03-09] MEDS: Metoprolol XL (24 HR) Succ 25 MG TAB.ER.24H PO SCH (08:43)
[2021-03-09] MEDS: Sennosides/Docusate Sodium TABLET PO SCH (08:43)
[2021-03-09] MEDS: Ascorbic Acid 500 MG TABLET PO SCH ×2 (08:43→18:03)
[2021-03-09] MEDS: Apixaban 2.5 MG TABLET PO SCH (08:43)
[2021-03-09] MEDS: Aspirin Enteric Coated 81 MG Tablet PO SCH (08:43)
[2021-03-09] MEDS: Fluticasone Propionate Nasal 50 MCG/SPRAY BOTTLE NS SCH (08:44)
[2021-03-09] MEDS: Acetaminophen 325 MG TABLET PO PRN (08:45)
[2021-03-09 14:03] LABS: % Iron Saturation 48 % (15-50); Transferrin 103
[2021-03-09 15:34] VITALS: PULSE 99; TEMP 98.3; O2SAT 93
[2021-03-09 16:16] VITALS: BP 94/71
== END 2021-03-09 18:45 | DRG 177 ==
LOC: EMEROOARM 13:57 → 3NENU 13:57 → SUATTDRO 17:40 → 3NENU 18:31 → SUATTDRO 03-05 15:43
PROVIDERS: ADMIT Hospitalist; ATTEND Internal Medicine

== ENCOUNTER 2021-08-31 03:17 | Observation (INO) ==
[2021-08-31] MEDS ORDERED: Ondansetron 4 MG/2 ML VIAL IVP PRN (03:57)
[2021-08-31] MEDS ORDERED: Naloxone 0.4 MG/ML INJ IVP PRN (03:57)
[2021-08-31] MEDS ORDERED: Acetaminophen 325 MG TABLET PO PRN (03:57)
[2021-08-31] MEDS ORDERED: Melatonin 3 MG TABLET PO PRN (03:57)
[2021-08-31 03:58] LABS: Hematocrit 30.6 % (35.3-44.9); Hemoglobin 9.7 g/dL (11.5-15.4)
[2021-08-31] MEDS ORDERED: Albuterol 2.5 MG/3 ML NEBULIZER IH PRN (03:58)
[2021-08-31 04:27] LABS: INR 1.2; Prothrombin Time 13.9 Seconds (9.4-12.1)
[2021-08-31 04:30] LABS: Activated Partial Thrombo Time 32.1 Seconds (26.0-36.0)
[2021-08-31 08:24] VITALS: TEMP 97.9
[2021-08-31 08:50] LABS: Basophils # 0.1 K/mcL (0.0-0.2); Basophils % 0.6 %; Eosinophils % 0.3 %; Hematocrit 29.2 % (35.3-44.9); Hemoglobin 9.6 g/dL (11.5-15.4); Immature Granulocytes % 0.5 % (0-4); Lymphocytes # 2.1 K/mcL (0.6-4.6); Lymphocytes % 27.5 %; Mean Corpuscular HGB Conc 32.9 g/dL (31.6-35.5); Mean Corpuscular Hemoglobin 32.4 pg (28.0-33.3); Mean Corpuscular Volume 98.6 fL (83.0-100.0); Mean Platelet Volume 9.2 fL (9.4-12.4); Monocytes # 0.5 K/mcL (0.0-1.3); Platelet Count 245 K/mcL (140-400); Red Blood Count 2.96 M/mcL (3.82-4.97); Red Cell Distribution Width 18.6 % (11.5-14.5); Segmented Neutrophils % 64.1 %; White Blood Count 7.7 K/mcL (4.3-11.1)
[2021-08-31] MEDS ORDERED: Mirtazapine 15 MG TABLET PO SCH (09:00)
[2021-08-31] MEDS ORDERED: Sennosides/Docusate Sodium TABLET PO SCH (09:00)
[2021-08-31] MEDS ORDERED: Metoprolol XL (24 HR) Succ 25 MG TAB.ER.24H PO SCH (09:00)
[2021-08-31] MEDS ORDERED: Aspirin Enteric Coated 81 MG Tablet PO SCH (09:00)
[2021-08-31 09:09] LABS: BUN/Creatinine Ratio 45 (6-26); Blood Urea Nitrogen 25 mg/dL (8-23); Calcium 9.4 mg/dL (8.6-10.3); Carbon Dioxide 28 mEq/L (23-29); Chloride 105 mEq/L (98-107); Glucose 108 mg/dL (70-105); Magnesium 1.8 mg/dL (1.6-2.6); Osmolality,Calculated 293 (280-300); Sodium 139 mEq/L (136-145); eGFR For African Americans > 60 (> 60); eGFR For Non-African Americans > 60 (> 60)
[2021-08-31] MEDS ORDERED: Apixaban 2.5 MG TABLET PO SCH (10:00)
[2021-08-31 11:47] VITALS: BP 152/87; PULSE 81; O2SAT 97
[2021-08-31] MEDS ORDERED: *HR* HYDROcodone/Acet 5/325 mg TABLET PO ONE (12:24)
[2021-08-31] MEDS ORDERED: ALPRAZolam 1 MG TABLET PO SCH (21:00)
== END 2021-08-31 16:45 | disposition home or self-care (01) ==
LOC: 3ANU 03:17 → EMEROOARM 03:17 → SUATTDRO 04:05 → 3ANU 05:13
PROVIDERS: ADMIT Internal Medicine; ATTEND Internal Medicine